=== PATIENT | female | born 1990 | race American Indian/Alaskan Native ===

== ENCOUNTER 2016-07-16 07:23 | Inpatient (IN) | payer MEDICARE, OTHER ==
[2016-07-16] MEDS ORDERED: Sodium Chloride 0.9% 1,000 ML IV ONE ×2 (08:09→10:35)
[2016-07-16 08:36] LABS: BASO % 0.4 % (0.0-2.0); EOS % 0.2 % (0.0-4.0); LYMPH % 17.8 % (20.0-40.0); MEAN CELL VOLUME 80.3 fL (81.0-99.0); MEAN CORPUSCULAR HEMOGLOBIN 26.3 pg (27.0-31.0); MEAN CORPUSCULAR HGB CONC 32.7 g/dL (33.0-37.0); MEAN PLATELET VOLUME 8.2 fL (7.2-11.7); MONO # 0.5 K/uL (0.0-0.8); MONO % 8.8 % (0.0-10.0); NRBC % 0.1 % (0.0-2.0); RED CELL DISTRIBUTION WIDTH 13.7 % (11.5-14.5); WHITE BLOOD COUNT 5.7 K/uL (4.8-10.8)
[2016-07-16 08:43] LABS: CHLORIDE 102 mmol/L (98-107)
[2016-07-16 08:44] LABS: POTASSIUM 3.2 mmol/L (3.6-5.2); SODIUM 137 mmol/L (132-148)
[2016-07-16 08:47] LABS: ALB/GLOB RATIO 1.2 (1.0-2.1); ALKALINE PHOSPHATASE 40 U/L (38-126); ALT/SGPT 52 U/L (9-52); AST/SGOT 50 U/L (14-36); BILIRUBIN,TOTAL 0.4 mg/dL (0.2-1.3); BLOOD UREA NITROGEN 4 mg/dL (7-17); CALCIUM 8.2 mg/dl (8.6-10.4); CARBON DIOXIDE 23 mmol/L (22-30); GFR AFRICAN-AMERICAN > 60; GLUCOSE,RANDOM 110 mg/dL (65-105); TOTAL PROTEIN 6.6 g/dL (6.3-8.3)
[2016-07-16] MEDS ORDERED: Potassium Chloride 20 mEq ER Tab PO STA ×2 (09:09→15:08)
[2016-07-16] MEDS ORDERED: Potassium Chloride 20 mEq ER Tab PO ONE ×2 (09:20→19:53)
--- NOTE | 2016-07-16 09:20 | C.PDOC ---
History Of Present Illness 26-year-old female with PMH asthma and bipolar disorder presents to the emergency department with complaints of fever, productive cough, body aches and shortness of breath. Patient notes she does not feel well was seen at [facility] few days ago for bronchitis and given cough medicine which she did not take. Denies back pain, dizziness, rashes, or any other associated symptoms. Of note patient is homeless. Time Seen by Provider: 07/16/16 08:07 Chief Complaint (Nursing): Cough, Cold, Congestion History Per: Patient History/Exam Limitations: no limitations Onset/Duration Of Symptoms: Days Current Symptoms Are (Timing): Still Present Past Medical History Reviewed: Historical Data, Nursing Documentation, Vital Signs Vital Signs: Last Vital Signs Temp 100.7 F H 07/16/16 14:12 Pulse 107 H 07/16/16 14:12 Resp 30 H 07/16/16 14:12 BP 103/54 L 07/16/16 14:12 Pulse Ox 93 L 07/16/16 14:12 - Medical History PMH: Anxiety, Asthma, Bipolar Disorder Surgical History: Tonsillectomy Family History: States: Unknown Family Hx - Social History Hx Alcohol Use: Yes Hx Substance Use: No - Immunization History Hx Tetanus Toxoid Vaccination: No Hx Influenza Vaccination: No Hx Pneumococcal Vaccination: No Review Of Systems Except As Marked, All Systems Reviewed And Found Negative. Constitutional: Positive for: Fever, Malaise Cardiovascular: Negative for: Chest Pain, Palpitations Respiratory: Positive for: Cough, Shortness of Breath, Sputum Gastrointestinal: Positive for: Nausea, Vomiting. Negative for: Abdominal Pain Genitourinary: Negative for: Dysuria, Frequency Musculoskeletal: Negative for: Back Pain Skin: Negative for: Rash Neurological: Negative for: Weakness, Numbness, Headache, Dizziness Physical Exam - Physical Exam Appears: Non-toxic, No Acute Distress, Other (patient is drowsy) Skin: Warm, Dry, No Rash Head: Atraumatic, Normacephalic Eye(s): bilateral: Normal Inspection, PERRL, EOMI Ear(s): Bilateral: Normal Nose: Normal Oral Mucosa: Moist Lips: Normal Appearing Neck: Normal ROM, Supple Cardiovascular: Rhythm Regular, No Murmur Respiratory: No Accessory Muscle Use, No Rhonchi, No Wheezing, Other (clear lungs, poor effort) Gastrointestinal/Abdominal: Normal Exam, Soft Extremity: Normal ROM, No Tenderness, No Deformity Neurological/Psych: Oriented x3, Normal Speech ED Course And Treatment - Laboratory Results Result Diagrams: 07/16/16 08:32 07/16/16 08:32 Lab Interpretation: No Acute Changes O2 Sat by Pulse Oximetry: 95 (room air) Pulse Ox Interpretation: Normal - Radiology CXR: Interpreted by Me, Viewed By Me, Read By Radiologist (DR. Brown, Melanie Manrique MD) CXR Interpretation: Yes: Other (Retrocardiac opacity suspicious for pneumonia. Right basilar atelectasis.) - Physician Consult Information Time Consulting Physician Contacted: 10:50 (physician was not reached and left a voicemail) Physician Contacted: Aiden Warner (11:35) Outcome Of Conversation: patient accepted to service Medical Decision Making Medical Decision Making: Impression: Fever and cough Prior Visits Notes and records from previous visits were reviewed. Patient was seen in [facility] ED over the last 3 days for similar complaints, diagnosed with flu and given meds. Labs and CXR normal Plan: * Labs * Chest X-Ray * Motrin in triage * IVF * Urinalysis/HCG * Reassess and Disposition Progress: Labs reviewed with no acute changes from prior [facility] visit. No leukocytosis. Patient remained febrile during evaluation. Tylenol PO ordered. CXR shows findings suspicious for pneumonia as read by Dr Brown. Patient remained febrile and tachycardic and O2 saturation drops to low 88-90s when room air. Case discussed with Dr Anthony who recommends observation medical admission for pnuemonia [address] Warner with no response [id number] Dr Parker returns call and accepts patient to service. Disposition - Disposition Disposition: HOSPITALIZED Disposition Time: 11:35 Condition: FAIR - POA Present On Arrival: None - Clinical Impression Clinical Impression: Pneumonia - Scribe Statement The provider has reviewed the documentation as recorded by the Scribkelly Adam All medical record entries made by the Scribe were at my direction and personally dictated by me. I have reviewed the chart and agree that the record accurately reflects my personal performance of the history, physical exam, medical decision making, and the department course for this patient. I have also personally directed, reviewed, and agree with the discharge instructions and disposition. Decision To Admit - Pt Status Changed To: Hospital Disposition Of: Inpatient - Admit Certification Admit to Inpatient:: After my assessment, the patient will require hospitalization for at least two midnights. This is because of the severity of symptoms shown, intensity of services needed, and/or the medical risk in this patient being treated as an outpatient. - InPatient: Physician Admission Certification: I certify that this patient requires 2 or more midnights of care for the following reason:: Patient febrile tachycardic, hypoxic with pneumonia on CXR. Plan is to admit for IV antibiotics and O2 - . Bed Request Type: Regular Admitting Physician: Aiden Warner Patient Diagnosis: Pneumonia, Influenza
--- NOTE | 2016-07-16 09:46 | RAD ---
HISTORY: fever, cough COMPARISON: None available. TECHNIQUE: Chest PA and lateral FINDINGS: LUNGS: Retrocardiac opacity suspicious for pneumonia. Right basilar atelectasis. Please note that chest x-ray has limited sensitivity for the detection of pulmonary masses. PLEURA: No significant pleural effusion identified. No definite pneumothorax . CARDIOVASCULAR: The cardiomediastinal silhouette appears within normal limits of size. OSSEOUS STRUCTURES: No acute osseous abnormality identified. VISUALIZED UPPER ABDOMEN: Unremarkable. OTHER FINDINGS: None. IMPRESSION: Retrocardiac opacity suspicious for pneumonia. Right basilar atelectasis.
[2016-07-16] MEDS ORDERED: Azithromycin 500mg/250ML NS 250 ML IV STA (10:35)
[2016-07-16] MEDS ORDERED: cefTRIAXone IV 1 gm in Dextros 50 ML IV STA (10:35)
[2016-07-16] MEDS ORDERED: Azithromycin 500mg/250ML NS 250 ML IVPB ONE (10:57)
[2016-07-16] MEDS ORDERED: Sodium Chloride 0.9% 1,000 ML ONE (10:57)
[2016-07-16] MEDS ORDERED: cefTRIAXone IV 1 gm in Dextros 50 ML IVPB ONE (10:57)
--- NOTE | 2016-07-16 15:11 | CP.PCM.PN ---
Subjective - Date & Time of Evaluation Date of Evaluation: 07/16/16 Time of Evaluation: 15:15 - Subjective Subjective: H&P dictated #[id number] Objective - Vital Signs/Intake and Output Vital Signs (last 24 hours): Temp Pulse Resp BP Pulse Ox 100.7 F H 107 H 30 H 103/54 L 95 07/16/16 14:12 07/16/16 14:12 07/16/16 14:12 07/16/16 14:12 07/16/16 14:59 - Medications Medications: Current Medications Acetaminophen (Tylenol 325mg Tab) 650 mg PO Q6 PRN PRN Reason: Fever >100.4 F Sodium Chloride (Sodium Chloride 0.9%) 1,000 mls @ 100 mls/hr IV .Q10H ONE Stop: 07/16/16 20:34 Last Admin: 07/16/16 11:19 Dose: 100 mls/hr Oseltamivir Phosphate (Tamiflu Cap) 75 mg PO BID DEANNA Stop: 07/21/16 12:16 Potassium Chloride (K-Dur 20 Meq Er Tab) 40 meq PO STAT STA Stop: 07/16/16 15:09
--- NOTE | 2016-07-16 17:48 | HP ---
CHIEF COMPLAINT: Cough with yellowish sputum, with headache, body aches, chills , and fever over the past 1 week. Recently given Tamiflu from [facility]. HISTORY OF PRESENT ILLNESS: The patient is a 26-year-old female with past medical history of schizoaffective disorder, bipolar disorder, who got treatment from [facility] for a possible UTI and bacterial vaginosis. Was on Bactrim and Flagyl. Has been evaluated in the ED 4 times in the last 4 days for symptoms of cold, cough, fever, and she was diagnosed with influenza B, was given fluids, and after the patient was stabilized in ED observation the patient was given Tamiflu and discharged home. The patient returned to the ED with suicidal ideation. All these multiple ED visits were to [facility]. Returning to [facility] [place] ED today with similar complaints of fever, cough, cold, light yellowish sputum, headache, and body aches. She claims that she was given antibiotics for her bronchitis, and she does not recall what antibiotic she has been taking. She does not remember if she is has been taking Tamiflu. She claims that she has been given her medication by the [facility] personnel and she could not recall what medications she has been taking. She was diagnosed with schizoaffective disorder and bipolar disorder about 2 months ago. She was started on lithium and Zyprexa by psychiatrist from [place]. She stopped taking those medications about a week ago when her symptoms of bronchitis started. She thought that the medications were too much, and strong for her. She complains of intermittent headache. She denies any dizziness. She denies any nausea, vomiting, abdominal pain, diarrhea, or constipation. She denies any urinary complaints. She is complaining of leg pain. She denies any suicidal or homicidal ideation, but she is admitting to having aggressive behavior and she wants to attack people because of her cold symptoms, as they were not able to understand her condition. She denies any other hallucinations or hearing voices. PAST MEDICAL HISTORY: As described. Bipolar disorder, schizoaffective disorder. PAST SURGICAL HISTORY: Tonsillectomy, and underwent . About 8 years ago she had 2 miscarriages. Her LMP was on 06/22/2016. FAMILY HISTORY: Mother at age 27 secondary to pneumonia. She claims that her father is in [place], and she has other siblings who are in [place]. PERSONAL HISTORY: She is single, having 1 son; living in a [facility]. SOCIAL HISTORY: She smoked until a week ago; smoked 10 cigarettes per day. Denies any alcohol or any drug abuse. ALLERGIES: SHE IS ALLERGIC TO LACTOSE. Her home medications include Vistaril, BuSpar1 tablet p.o. daily, Phenergan cocktail, Tamiflu, Flagyl, Latuda, lithium carbonate 300 mg p.o. t.i.d., Z-figueroa, Ventolin, Motrin. REVIEW OF SYSTEMS: As described in history of present illness. All other systems reviewed and were found to be negative. On examination, a young obese female lying in bed in no acute distress. Blood pressure 103/54, pulse 107, temperature 100.7 degrees Fahrenheit, respirations 30, O2 sats 93% on 2 L. HEENT: Pupils equal, round, reacting to light and accommodation. Extraocular muscles intact. No icterus, no pallor. No oral thrush. Congested . NECK: Supple. No JVD. LUNGS: Bilateral vesicular breath sounds. No wheezing, no rhonchi heard. CARDIOVASCULAR SYSTEM: S1, S2 present, regular. ABDOMEN: Soft, nontender. Bowel sounds present. No guarding, no rigidity, no rebound tenderness noted. CENTRAL NERVOUS SYSTEM: Alert, awake, oriented x 3. No focal deficits noted. EXTREMITIES: No edema. Palpable peripheral pulses. LABS DONE FROM THE ED: WBC 5.7, hemoglobin 11.1, hematocrit 34, platelets 166. Sodium 137, potassium 3.2, chloride 102, bicarb 23, BUN 4, creatinine 10.8, glucose 110, calcium 8.2, total bilirubin 0.4. AST 50, ALT 52, alkaline phosphatase 40, total protein 6.6, albumin 3.6. CHEST X-RAY: Retrocardiac opacity suspicious for pneumonia, right basilar atelectasis. Chest x-ray done on 07/12: Chest x-ray negative. On 07/14 chest x-ray negative. ASSESSMENT: A young female with history of schizoaffective disorder diagnosed recently about 2 months ago. Has been on lithium and her Zyprexa; self- discontinued about a week ago because of symptoms of fever, cough with yellowish sputum, chills, rigors, and night sweats, who has been living in a [facility]. Came in to the ED with progressive worsening of her cough, fever, and chills. The patient had multiple visits to the ED in the past 4 days. Today at [facility] [place] ED she was found to be having retrocardiac infiltrate, and the patient is being admitted for further management. 1. Retrocardiac infiltrate. Rule out influenza pneumonia versus bacterial pneumonia. 2. Schizoaffective disorder. 3. Hypokalemia. PLAN: The patient is being admitted to medical floor. The patient received Zithromax and Rocephin in the ED for pneumonia. Since having influenza is positive, will continue with Tamiflu 75 mg p.o. b.i.d. Will get chest CT. Will give 2 L of oxygen via nasal cannula, give cough medicine, continue with Tamiflu 75 mg p.o. b.i.d. Will obtain ID evaluation. Blood cultures, urine culture given for drug screen. Serum for Gram-stain and culture ordered. Will check PPD. Will give promethazine cough medicine, check labs in a.m. Will obtain ID consult, and psychiatric consult as patient has self-discontinued her medications, lithium and Zyprexa. Will add further recommendation as her clinical course progresses. Aiden Warner MD cc: [phone] TT: 07/16/2016 17:48:00 jn [id number]
--- NOTE | 2016-07-16 17:50 | CP.PCM.CON ---
History of Present Illness - History of Present Illness History of Present Illness: Infectious disease consult; DICTATED: DICTATION NO [id number] Past Patient History - Past Social History Smoking Status: Light Smoker < 10 Cigarettes Daily - CARDIAC Hx Hypertension: No - PULMONARY Hx Asthma: Yes - NEUROLOGICAL Hx Seizures: No - ENDOCRINE/METABOLIC Hx Endocrine Disorders: No - HEMATOLOGICAL/ONCOLOGICAL Hx Human Immunodeficiency Virus (HIV): No - MUSCULOSKELETAL/RHEUMATOLOGICAL Hx Musculoskeletal Disorders: No - GENITOURINARY/GYNECOLOGICAL Hx Sexually Transmitted Disorders: No - PSYCHIATRIC Hx Anxiety: Yes Hx Bipolar Disorder: Yes Hx Substance Use: No - SURGICAL HISTORY Hx Tonsillectomy: Yes - ANESTHESIA Hx Anesthesia: Yes Hx Anesthesia Reactions: No Meds Allergies/Adverse Reactions: Allergies Allergy/AdvReac Type Severity Reaction Status Date / Time lactose AdvReac DIARRHEA Verified 07/16/16 07:41 - Medications Medications: Current Medications Acetaminophen (Tylenol 325mg Tab) 650 mg PO Q6 PRN PRN Reason: Fever >100.4 F Sodium Chloride (Sodium Chloride 0.9%) 1,000 mls @ 100 mls/hr IV .Q10H ONE Stop: 07/16/16 20:34 Last Admin: 07/16/16 11:19 Dose: 100 mls/hr Oseltamivir Phosphate (Tamiflu Cap) 75 mg PO BID DEANNA Stop: 07/21/16 12:16 Promethazine HCl (Phenergan Syrup) 6.25 mg PO Q6H PRN PRN Reason: Cough Tuberculin PPD (Tubersol) 5 tu ID DAILY@ONCE ONE Stop: 07/16/16 18:01 Results - Vital Signs Recent Vital Signs: Last Vital Signs Temp 100.7 F H 07/16/16 15:30 Pulse 106 H 07/16/16 15:30 Resp 20 07/16/16 15:30 BP 113/74 07/16/16 15:30 Pulse Ox 92 L 07/16/16 15:30 - Labs Result Diagrams: 07/16/16 08:32 07/16/16 08:32
[2016-07-16] MEDS: Promethazine 6.25 MG/5 ML CUP PO PRN (17:54)
[2016-07-16] MEDS ORDERED: Tuberculin 5 Units/0.1 ml Inj ID ONE (18:00)
[2016-07-16] MEDS: Cefepime IV 1 gm in Dextrose 50 ML IVPB SCH (20:06)
[2016-07-17] MEDS: Cefepime IV 1 gm in Dextrose 50 ML IVPB SCH ×3 (02:46→18:35)
[2016-07-17] MEDS: Promethazine 6.25 MG/5 ML CUP PO PRN ×2 (02:50→13:37)
[2016-07-17 03:37] LABS: RBC URINE 1 /hpf (0-3); URINE BILIRUBIN NEGATIVE (NEGATIVE); URINE BLOOD NEGATIVE (NEGATIVE); URINE COLOR Yellow (YELLOW); URINE GLUCOSE (UA) NORMAL (Normal); URINE KETONE 1+ mg/dL (NEGATIVE); URINE LEUKOCYTE ESTERASE NEG Leu/uL (Negative); URINE PROTEIN 2+ mg/dL (NEGATIVE); URINE UROBILINOGEN NORMAL mg/dL (0.2-1.0); WBC URINE 3 /hpf (0-5)
[2016-07-17] MEDS ORDERED: Albuterol-Ipratrop 3 mg / 0.5 (3 ml) UD INH STA (04:06)
[2016-07-17] MEDS: Albuterol-Ipratrop 3 mg / 0.5 (3 ml) UD INH SCH ×3 (08:21→21:50)
[2016-07-17] MEDS: Azithromycin 500 MG in Sodium Chloride 0.9% 250 ML IVPB SCH (09:41)
[2016-07-17 10:25] LABS: BASO % 0.7 % (0.0-2.0); EOS % 0.5 % (0.0-4.0); HEMATOCRIT 32.9 % (34.0-47.0); LYMPH # 0.8 K/uL (1.0-4.3); LYMPH % 26.3 % (20.0-40.0); MEAN CELL VOLUME 81.5 fL (81.0-99.0); MEAN CORPUSCULAR HEMOGLOBIN 26.3 pg (27.0-31.0); MEAN CORPUSCULAR HGB CONC 32.2 g/dL (33.0-37.0); MEAN PLATELET VOLUME 8.6 fL (7.2-11.7); MONO # 0.2 K/uL (0.0-0.8); MONO % 5.4 % (0.0-10.0); WHITE BLOOD COUNT 3.2 K/uL (4.8-10.8)
[2016-07-17 10:29] LABS: VENOUS BLOOD GAS BASE EXCESS -6.6 mmol/L (0.0-2.0); VENOUS BLOOD GAS PCO2 29 mmHg (40-60); VENOUS BLOOD PH 7.38 (7.32-7.43)
[2016-07-17] MEDS ORDERED: Potassium Chloride 20 mEq ER Tab PO ONE ×5 (10:35→23:55)
[2016-07-17] MEDS ORDERED: Potassium Chloride 10 mEq 100 ML IVPB ONE ×3 (10:36→12:38)
[2016-07-17 10:37] LABS: INR 1.2
[2016-07-17 10:43] LABS: CHLORIDE 103 mmol/L (98-107)
[2016-07-17 10:44] LABS: SODIUM 135 mmol/L (132-148)
[2016-07-17 10:46] LABS: ALB/GLOB RATIO 0.9 (1.0-2.1); ALKALINE PHOSPHATASE 26 U/L (38-126); AST/SGOT 79 U/L (14-36); BILIRUBIN,TOTAL 1.5 mg/dL (0.2-1.3); BLOOD UREA NITROGEN 5 mg/dL (7-17); CARBON DIOXIDE 22 mmol/L (22-30); CHOLESTEROL 142 mg/dL (0-199); GFR AFRICAN-AMERICAN > 60; GLUCOSE,RANDOM 132 mg/dL (65-105); TOTAL PROTEIN 6.7 g/dL (6.3-8.3)
[2016-07-17 10:47] LABS: ALT/SGPT 14 U/L (9-52); CALCIUM 7.2 mg/dl (8.6-10.4)
[2016-07-17 10:48] LABS: POTASSIUM 4.8 mmol/L (3.6-5.2)
[2016-07-17] MEDS ORDERED: Sodium Chloride 0.9% 1,000 ML IV ONE (10:50)
[2016-07-17 11:17] LABS: THYROID STIMULATING HORMONE 0.47 mIU/L (0.46-4.68)
--- NOTE | 2016-07-17 11:32 | CP.PCM.PN ---
Subjective - Date & Time of Evaluation Date of Evaluation: 07/17/16 Time of Evaluation: 11:15 - Subjective Subjective: Progress note dictated #[id number] Objective - Vital Signs/Intake and Output Vital Signs (last 24 hours): Temp Pulse Resp BP Pulse Ox 99.7 F H 113 H 20 116/75 95 07/17/16 11:14 07/17/16 08:45 07/17/16 08:45 07/17/16 08:45 07/17/16 08:45 - Medications Medications: Current Medications Acetaminophen (Tylenol 325mg Tab) 650 mg PO Q6 PRN PRN Reason: Fever >100.4 F Last Admin: 07/17/16 08:33 Dose: 650 mg Albuterol/Ipratropium (Duoneb 3 Mg/0.5 Mg (3 Ml) Ud) 3 ml INH RQ6 DEANNA Last Admin: 07/17/16 08:21 Dose: 3 ml Cefepime HCl (Maxipime Iv 1 Gm Premix) 50 mls @ 100 mls/hr IVPB Q8H DEANNA Last Admin: 07/17/16 02:46 Dose: 100 mls/hr Azithromycin 500 mg/ Sodium (Chloride) 250 mls @ 250 mls/hr IVPB DAILY DEANNA Last Admin: 07/17/16 09:41 Dose: 250 mls/hr Oseltamivir Phosphate (Tamiflu Cap) 75 mg PO BID DEANNA Stop: 07/21/16 12:16 Last Admin: 07/17/16 09:41 Dose: 75 mg Promethazine HCl (Phenergan Syrup) 6.25 mg PO Q6H PRN PRN Reason: Cough Last Admin: 07/17/16 02:50 Dose: 6.25 mg - Labs Labs: 07/17/16 10:17 07/17/16 10:40 PT 13.4 SECONDS (9.7-12.2) H 07/17/16 10:17 INR 1.2 07/17/16 10:17 APTT 32 SECONDS (21-34) 07/17/16 10:17
--- NOTE | 2016-07-17 11:45 | PCM.PSYCH ---
Initial Psychiatric Evaluation - Initial Psychiatric Evaluation Type of Admission: Voluntary Legal Status: Capacity Chief Complaint (in patient's own words): "I'm OK today" History of Present Illness and Precipitating Events: The patient is seen, chart reviewed and case discussed. Consultation was requested because of patient's psychiatric history. This is a 26-year-old -[place] female, single with 18-year-old son who is with his father in the [place]. The patient lives in [facility] and is unemployed. She says she wants to move to [place] or [place] and go to a school in [place]. The patient is here for pneumonia and rule out influenza. She was depressed and veryanxious yesterday and psych consult was requested. Today, however, she states that she feels better as her breathing has improved. She is future oriented, denies suicidal ideation, denies age or psych symptoms, i.e. not suicidal, homicidal, hallucinating, or delusional. However she feels anxious and worried about her future. She admits to not attending to any program or taking any medications. She said she was on lithium and Zyprexa but stopped because they made her gain weight. She also doesn't want to go to [facility] outpatient because she doesn't "like that hospital." Denies drug and alcohol use. Past psych history: Hospitalized at [facility] and diagnosed with schizoaffective disorder. She had SI in the past, no attempts. Has more than 5 psych admissions. Family psych history: Grandmother was schizophrenic Medical history: Obesity Current Medications: Active Medications Generic Name Dose Route Start Last Admin Trade Name Freq PRN Reason Stop Dose Admin Acetaminophen 650 mg 07/16/16 15:09 07/17/16 08:33 Tylenol 325mg Tab PO 650 mg Q6 PRN Administration Fever >100.4 F Albuterol/Ipratropium 3 ml 07/17/16 08:00 07/17/16 08:21 Duoneb 3 Mg/0.5 Mg (3 Ml) Ud INH 3 ml RQ6 DEANNA Administration Aripiprazole 5 mg 07/17/16 18:00 Abilify PO QPM DEANNA Enoxaparin Sodium 40 mg 07/17/16 11:45 Lovenox SC DAILY DEANNA Cefepime HCl 50 mls @ 100 mls/hr 07/16/16 19:00 07/17/16 02:46 Maxipime Iv 1 Gm Premix IVPB 100 mls/hr Q8H DEANNA Administration Azithromycin 500 mg/ Sodium 250 mls @ 250 mls/hr 07/17/16 10:00 07/17/16 09:41 Chloride IVPB 250 mls/hr DAILY DEANNA Administration Oseltamivir Phosphate 75 mg 07/16/16 18:00 07/17/16 09:41 Tamiflu Cap PO 07/21/16 12:16 75 mg BID DEANNA Administration Promethazine HCl 6.25 mg 07/16/16 15:57 07/17/16 02:50 Phenergan Syrup PO 6.25 mg Q6H PRN Administration Cough Past Psychiatric History - Past Psychiatric History Previous Treatment History: Inpatient Pertinent Medical Hx (Current Medical&Sleep Prob, Allergies): Allergies Allergy/AdvReac Type Severity Reaction Status Date / Time lactose AdvReac DIARRHEA Verified 07/16/16 07:41 Azithromycin [Zithromax] 250 mg PO DAILY #1 packet 07/12/16 Ibuprofen [Motrin Tab] 1 tab PO Q6 PRN #20 tab 07/12/16 [place] Carbonate [[place] Carbonate 150MG] 300 mg PO TID 07/12/16 Lurasidone Hydrochloride [Latuda] 1 tab PO 07/12/16 Metronidazole [Flagyl] 1 tab PO BID 07/12/16 Olanzapine [Olanzapine Odt] 1 tab PO DAILY 07/12/16 Promethazine DM [Phenergan DM Oral Syrup] 5 ml PO Q6H PRN #100 dose 07/12/16 Sulfamethoxazole/Trimethoprim [Bactrim DS Tab] 1 tab PO BID 07/12/16 busPIRone [Buspar] 1 tab PO 07/12/16 hydrOXYzine Pamoate [Vistaril] 1 tab PO TID 07/12/16 Albuterol HFA [Ventolin HFA 90 mcg/actuation (8 g)] 2 puff IH [id number] #1 inh 03/19 Oseltamivir Phosphate [Tamiflu] 75 mg PO BID #10 capsule 07/14/16 Review of Systems - Neurological Neurological: Weakness - Psychiatric Psychiatric: Abnormal Sleep Pattern, Anxiety, Difficulty Concentrating. absent : Auditory Hallucinations, Depression, Hallucinations, Homicidal Ideation, Hopelessness, Suicidal Ideation Mental Status Examination - Personal Presentation Personal Presentation: Looks older than stated age (obese) - Affect Affect: Constricted - Motor Activity Motor Activity: Calm - Reliability in Providing Information Reliability in Providing Information: Good - Speech Speech: Organized - Mood Mood: Anxious - Formal Thought Process Formal Thought Process: No Impairment - Cognitive Functions Orientation: Person, Place, Situation, Time Sensorium: Alert Attention/Concentration: Attentive Abstract Thinking: [place] Estimate of Intelligence: Average Judgement: Intact, as evidence by: Insight regarding need for hospitalization Memory: Recent intact, as evidence by: Ability to recall events of the day, Remote intact, as evidenced by: Abilit to recall sig. life events - Risk Risk: Diminished functioning - Strength & Assets Inventory Strength & Assets Inventory: Cooperative - Limitations Limitations: Living alone DSM 5 DX - DSM 5 DSM 5 Diagnosis: Schizoaffective d/o - unspecified Adjustment d/o - with anxiety - Recommended/Plan of Treatment Treatment Recommendations and Plan of Treatment: Abilify for mood stabilization: 5 mg qd x2 days, then 10 mg/d refer to [facility] for outpt care as she does not want to go to [facility] and psychoed 32 min
[2016-07-17 12:31] LABS: PHOSPHOROUS 3.3 mg/dL (2.5-4.5)
--- NOTE | 2016-07-17 13:35 | CT ---
CT chest with IV contrast Indication: Rule out PA, cough, fever Technique: Contiguous axial images were obtained through the chest with intravenous contrast enhancement. Sagittal and coronal reconstructions were generated and reviewed. This CT exam was performed using 1 or more of the falling dose reduction techniques: Automated exposure control, adjustment of the MAA and/or kV according to patient size, and/or use of iterative reconstruction technique. IV Contrast: 100 mL Visipaque Radiation dose (DLP): 574.00 MGy-cm. Comparison: Chest x-ray performed 07/16/16 Findings: Examination markedly limited due to habitus and patient motion secondary to coughing. Heart size appears top normal. No significant pericardial effusion. There is suboptimal opacification of the pulmonary arteries due to habitus and patient motion limiting evaluation for pulmonary embolus. Given this limitation, there are no definite intraluminal filling defects within the central pulmonary arteries to suggest central pulmonary embolism, however artifact obscures portion of the pulmonary trunk. Question filling defect with in the right proximal lower lobe branch pulmonary artery (series 2, image 109). Patchy nodular airspace consolidations and associated ground-glass opacities throughout all lobes with mid to lower lobe predominance. Small right pleural effusion. No pneumothorax. Limited visualization of the upper abdomen appears grossly unremarkable. No acute osseous abnormality is detected. Impression: There is suboptimal opacification of the pulmonary arteries due to habitus and patient motion limiting evaluation for pulmonary embolus. Given this limitation, there are no definite intraluminal filling defects within the central pulmonary arteries to suggest central pulmonary embolism, however artifact obscures portion of the pulmonary trunk. Question filling defect with in the right proximal lower lobe branch pulmonary artery, however this may also be artifact rather than thrombus. Patchy nodular airspace consolidations and associated ground-glass opacities throughout all lobes with mid to lower lobe predominance. Correlate clinically for infectious and inflammatory etiologies. Component of edema is not excluded. Small right pleural effusion.
[2016-07-17] MEDS: Enoxaparin 40 mg Syringe SC SCH (13:37)
[2016-07-17 20:08] LABS: CHLORIDE 103 mmol/L (98-107); POTASSIUM 3.1 mmol/L (3.6-5.2); SODIUM 140 mmol/L (132-148)
[2016-07-17 20:11] LABS: BLOOD UREA NITROGEN 4 mg/dL (7-17); CALCIUM 7.4 mg/dl (8.6-10.4); CARBON DIOXIDE 26 mmol/L (22-30); GFR AFRICAN-AMERICAN > 60; GLUCOSE,RANDOM 91 mg/dL (65-105)
[2016-07-18] MEDS: Albuterol-Ipratrop 3 mg / 0.5 (3 ml) UD INH SCH ×4 (01:02→20:00)
[2016-07-18] MEDS: Cefepime IV 1 gm in Dextrose 50 ML IVPB SCH ×3 (04:05→18:33)
--- NOTE | 2016-07-18 07:04 | CON ---
DATE: 07/16/2016 REQUESTING PHYSICIAN: Dr. Warner. . REASON FOR CONSULTATION: Pneumonia, acute bronchitis, and bipolar disorder. The patient, a 26-year-old female who is homeless with multiple medical problems, including asthma, b ipolar disorder, anxiety disorder, who presents to the Emergency Department with complaints fever, pr oductive cough, yellowish-greenish phlegm, body aches, and shortness of breath. The patient states s he has not been feeling well, and been at [facility], [place], for a few days, and from where she was discharged and given some cough medications and pills. She does not know. She denies taking th em also. Presently she denies any headache, sinus problems. Chest x-ray on admission showed right retrocardia c opacity consistent with pneumonia, and right basilar atelectasis. The patient also was febrile to 100.7, with blood pressure 103/54. The patient denies any rashes or any other associated symptoms, pain or pleuritic pain. She denies any dizziness. The patient denies any recent contact with any sick patient, but states she is homeless. She denies any recent travel. The patient was given a dose of Zithromax and Rocephin after appropriate cultures. Presently also started on Tamiflu 75 mg p.o. b.i.d. Infectious disease consultation requested by the PMD for evaluation of fevers and pneumo janett. The patient also has history of bipolar disorder, and is presently some kind of medications including lithium and Zyprexa. PAST MEDICAL HISTORY: As above. Anxiety problems, asthma, and bipolar disorder. SURGICAL HISTORY: Gives history of . FAMILY HISTORY: Unknown. SOCIAL HISTORY: She denies any substance abuse. She does use alcohol intermittently off and on. Sm oking intermittently. IMMUNIZATION HISTORY: She is not up to date on , influenza vaccine, and pneumococcal vaccine. as reported. REVIEW OF SYSTEMS: As above. CONSTITUTIONAL: Complains of . CARDIOVASCULAR: Denies any chest pain, palpitations. RESPIRATORY: Complains of cough, shortness of breath, and productive greenish-yellowish phlegm. GASTROINTESTINAL: Complains of some nausea and vomiting, but denies any abdominal pain, diarrhea. GENITOURINARY: Unremarkable. No history of dysuria. No history of frequency . : Complains of generalized body aches. Denies any back pain. SKIN: Negative for rash. CENTRAL NERVOUS SYSTEM: Denies weakness, or headache, or dizziness. No history of seizures. MEDICATIONS: As per chart review. See MAR. On physical examination, the patient is a 26-year-old, heavy built female; 5 feet 3 inches, 239 pound s, BMI of 43.7 kg. Blood pressure 103/54, T-max of 100.7, pulse ox was 95% on room air, pulse is 107, respiratory rate 2 2. HENT: Pupils are equal, reactive to light and accommodation. Extraocular movements full. Fundus ne gative. Sclerae nonicteric, conjunctivae normal. JVP not elevated. NECK: Appears to be supple. signs noted. LUNGS: Few rhonchi, respirations. Loose breath sounds at the bases. . CARDIOVASCULAR SYSTEM: S1, S2. No murmur or gallop. ABDOMEN: Soft. Bowel sounds present, no organomegaly. EXTREMITIES: No cyanosis, clubbing. No calf tenderness. CENTRAL NERVOUS SYSTEM: Awake, alert . Moves all extremities. Reflexes are symmetrical. Cran ial nerves II-XII seem to be intact. LABORATORY DATA: WBC is 5.7, H and H of 11.1 and 34.0, platelets 166. Creatinine 0.8, BUN 4. Liver function tests: Bilirubin is 0.4, AST 50, ALT 52. Alkaline phosphatase 52, potassium is 3.2. CHEST X-RAY: right base . IMPRESSION: 1. Pneumonia with fevers. Rule out atypical pneumonia, rule out . 2. Exacerbation of bronchial asthma. 3. Bipolar disorder. 4. Anxiety problems. PLAN: 1. Pancultures. Will get influenza rapid antigen test, as well as influenza A and B antibody. Will check atypical titers for Legionella, mycoplasma, and Legionella urinary antigen. Get sed rate, C-r eactive proteins. The patient will also get an HIV-1 and 2 antibody, and lymphocyte subsets studies. Drug Screen: Urine has been sent by the PMD. Also, CT chest as ordered. Will continue p.o. Tamif isabelle 75 mg b.i.d. for 5 days. Will start her on IV Maxipime 1 g q. 8 hourly in view of persistent gree yusra phlegm. 2. Continue IV Zithromax 500 mg IV piggyback once daily. Continue droplet precautions: Gown, glove s, and hand hygiene. Will follow up along with you and make any adjustments as needed. Thank you very much for allowing me to participate in the care of your patient. Will follow up as ne anna. Kailyn Dudley MD cc: [id number] TT: 07/16/2016 20:06:03 Confirmation # [id number] Dictation # [id number] jn
--- NOTE | 2016-07-18 07:07 | PN ---
DATE: 07/17/2016 The patient is seen and examined at bedside. Events from last night and this morning noted. The patient was tachycardic, tachypneic with elevated temperatures. The patient was started on nonrebreather mask and was given nebulizer treatment, with which her symptoms improved. When I came to evaluate the patient, the patient is more alert and awake, sitting comfortably in bed, complaining of cough with yellowish sputum. Denied any chest pain. Denied any nausea, vomiting. Denied any other complaints. MEDICATIONS: Include Tylenol, DuoNeb, Abilify 5 mg p.o. q.p.m., azithromycin 500 mg IV daily, Maxipime 1 gram IV q. 8 hours, Lovenox 40 mg subQ daily, Tamiflu 75 mg p.o. b.i.d., Phenergan cough syrup as needed. PHYSICAL EXAMINATION: GENERAL: Young female, lying in bed, in no acute distress. VITAL SIGNS: Blood pressure 116/75, pulse 113, temperature 102.4, O2 sats 95% on nonrebreather mask. HEENT: Pupils equal, round, reacting to light and accommodation. Extraocular muscles intact. No oral thrush. NECK: Supple. No JVD. LUNGS: Bilateral vesicular breath sounds, left-sided rhonchi heard. CARDIOVASCULAR: S1, S2 present, regular. ABDOMEN: Soft, nontender. Bowel sounds present. No guarding, no rigidity, no rebound tenderness noted. CENTRAL NERVOUS SYSTEM: Alert, awake, oriented x 3. No focal deficits noted. EXTREMITIES: No edema. Palpable peripheral pulses. LABORATORIES: Done from this morning, WBC 3.2, hemoglobin 10.6, hematocrit 32.9 , platelets 189. PT 13.4, INR 1.2, PTT 32. ABG on room air shows pH of 7.38, pCO2 29, pO2 is 100 on nonrebreather mask. Sodium 135, potassium 4.8, chloride 103, bicarbonate 22, BUN 5, creatinine 0.6, glucose 132, calcium 7.2. Magnesium pending. Phosphorus pending. Total bilirubin 1.5, AST 79, alkaline phosphatase 26. CPK more than 15. Total protein 6.7, albumin 3.2, globulin 3.6. Triglycerides 127, cholesterol 142, HDL 24. TSH 0.47. UA: Specific gravity 1.018, protein 2+, ketones 1+. Urine tox screen negative. Influenza A and B negative. Legionella negative. [place] level is less than 0.2. The patient did not have CT scan done. ASSESSMENT AND PLAN: A young female with history of schizoaffective disorder with recently diagnosed influenza B positive and bacterial vaginosis, acute bronchitis, was given multiple antibiotics and Tamiflu from [place], admitted to [facility]. Chest x-ray showing possible retrocardiac infiltrate, started on antibiotics and Tamiflu, status post acute respiratory distress, rule out secondary to anxiety versus worsening infiltrate. The patient improved with nebulizer treatment and oxygen. We will rule out pulmonary embolism with CT of the chest with contrast. We will continue with current antibiotics as per ID. ID input appreciated. Psychiatric evaluation appreciated. We will give Lovenox for deep venous thrombosis prophylaxis. Follow up with CT chest results. We will change nonrebreather to oxygen via nasal cannula and titrate to keep her oxygen saturations sats more than 90%. We will add further recommendation as her clinical course progresses. Aiden Warner MD cc: [id number] TT: 07/17/2016 13:13:01 Confirmation # [id number] Dictation # [id number] MTDD
[2016-07-18 10:33] LABS: ABG ALLEN TEST A; ARTERIAL BLOOD HGB O2 SAT 97.1 % (95.0-98.0); CARBOXYHEMOGLOBIN 1.6 % (0.5-1.5); DRAW SITE LR; HHB 0.1 % (0.0-5.0); METHEMOGLOBIN 1.2 % (0.0-3.0)
[2016-07-18] MEDS: Enoxaparin 40 mg Syringe SC SCH (10:58)
[2016-07-18] MEDS: Azithromycin 500 MG in Sodium Chloride 0.9% 250 ML IVPB SCH (10:59)
[2016-07-18 11:23] LABS: CHLORIDE 101 mmol/L (98-107); POTASSIUM 3.7 mmol/L (3.6-5.2); SODIUM 138 mmol/L (132-148)
[2016-07-18 11:25] LABS: GFR AFRICAN-AMERICAN > 60
[2016-07-18 11:26] LABS: BLOOD UREA NITROGEN 3 mg/dL (7-17); CALCIUM 7.7 mg/dl (8.6-10.4); CARBON DIOXIDE 27 mmol/L (22-30); GLUCOSE,RANDOM 87 mg/dL (65-105)
--- NOTE | 2016-07-18 12:16 | CP.PCM.PN ---
Subjective - Date & Time of Evaluation Date of Evaluation: 07/18/16 Time of Evaluation: 11:45 - Subjective Subjective: Progress note dictated #[id number] Objective - Vital Signs/Intake and Output Vital Signs (last 24 hours): Temp Pulse Resp BP Pulse Ox 98.5 F 88 20 113/79 95 07/18/16 09:22 07/18/16 09:22 07/18/16 09:22 07/18/16 09:22 07/18/16 09:22 - Medications Medications: Current Medications Acetaminophen (Tylenol 325mg Tab) 650 mg PO Q6 PRN PRN Reason: Fever >100.4 F Last Admin: 07/17/16 20:20 Dose: 650 mg Albuterol/Ipratropium (Duoneb 3 Mg/0.5 Mg (3 Ml) Ud) 3 ml INH RQ6 [facility] Last Admin: 07/18/16 09:02 Dose: Not Given Aripiprazole (Abilify) 5 mg PO QPM [facility] Last Admin: 07/17/16 18:35 Dose: 5 mg Enoxaparin Sodium (Lovenox) 40 mg SC DAILY [facility] Last Admin: 07/18/16 10:58 Dose: 40 mg Folic Acid (Folic Acid) 1 mg PO DAILY [facility] Cefepime HCl (Maxipime Iv 1 Gm Premix) 50 mls @ 100 mls/hr IVPB Q8H [facility] Last Admin: 07/18/16 04:05 Dose: 100 mls/hr Azithromycin 500 mg/ Sodium (Chloride) 250 mls @ 250 mls/hr IVPB DAILY [facility] Last Admin: 07/18/16 10:59 Dose: 250 mls/hr Trimethoprim/Sulfamethoxazole (240 mg/ Dextrose) 100 mls @ 100 mls/hr IVPB Q8H [facility] Oseltamivir Phosphate (Tamiflu Cap) 75 mg PO BID [facility] Stop: 07/21/16 12:16 Last Admin: 07/18/16 10:58 Dose: 75 mg Promethazine HCl (Phenergan Syrup) 6.25 mg PO Q6H PRN PRN Reason: Cough Last Admin: 07/17/16 13:37 Dose: 6.25 mg - Labs Labs: 07/17/16 10:17 07/18/16 10:54 PT 13.4 SECONDS (9.7-12.2) H 07/17/16 10:17 INR 1.2 07/17/16 10:17 APTT 32 SECONDS (21-34) 07/17/16 10:17
[2016-07-18 12:27] LABS: RBC URINE 1799 /hpf (0-3); URINE BACTERIA RARE (<OCC); URINE BILIRUBIN NEGATIVE (NEGATIVE); URINE BLOOD 3+ (NEGATIVE); URINE COLOR Yellow (YELLOW); URINE GLUCOSE (UA) NORMAL (Normal); URINE KETONE 2+ mg/dL (NEGATIVE); URINE LEUKOCYTE ESTERASE NEG Leu/uL (Negative); URINE PROTEIN 2+ mg/dL (NEGATIVE); URINE UROBILINOGEN NORMAL mg/dL (0.2-1.0)
--- NOTE | 2016-07-18 13:02 | CP.PCM.CON ---
History of Present Illness - History of Present Illness History of Present Illness: Pulmology consult for pneumonia and shortness of breath. Patient is a 26yo AA F that presented with fever, cough, and shortness of breath , previously seen at [facility] and sent home with cough medication that she did not take. The patient was seen in the ED and was admitted for possible diagnosis of Pneumonia. The patient was seen and examined at bedside, no acute distress, no acute events overnight. The patient was fatigued but cooperative when questioned about her condition, the patient states that is difficult to talk due to how short of breath she gets. The patient is currently saturating well on 100% O2 non-rebreather mask. The patient currently denies chest pain, palpitations, nausea, vomiting, abd pain, edema, pain on inspiration, cough, nasal congestion. PMH: Asthma PsychHx: Bipolar, Anxiety PSH:Tonsillectomy Meds: Alvan, Olanzapine Allergies: Lactose FamHx: Denies significant family history Social: former smoker, denies etoh, illicit drug use/ Review of Systems - Constitutional Constitutional: Chills, Fever. absent: Headache, Night Sweats - EENT Eyes: absent: Blurred Vision, Change in Vision Ears: absent: Ear Pain - Respiratory Respiratory: Cough, Dyspnea, Dyspnea on Exertion, Wheezing, Chest Congestion. absent: Hemoptysis - Musculoskeletal Musculoskeletal: absent: Arthralgias, Joint Swelling, Muscle Weakness - Integumentary Integumentary: absent: Changing Lesions, Non-Healing Lesions - Neurological Neurological: absent: Abnormal Gait, Abnormal Hearing Past Patient History - Past Medical History & Family History Past Medical History?: Yes - Past Social History Smoking Status: Light Smoker < 10 Cigarettes Daily - CARDIAC Hx Cardiac Disorders: No Hx Hypertension: No - PULMONARY Hx Respiratory Disorders: Yes Hx Asthma: Yes Hx Bronchitis: Yes - NEUROLOGICAL Hx Neurological Disorder: No Hx Seizures: No - HEENT Hx HEENT Problems: No - RENAL Hx Chronic Kidney Disease: No - ENDOCRINE/METABOLIC Hx Endocrine Disorders: No - HEMATOLOGICAL/ONCOLOGICAL Hx Blood Disorders: No Hx Human Immunodeficiency Virus (HIV): No - INTEGUMENTARY Hx Dermatological Problems: No - MUSCULOSKELETAL/RHEUMATOLOGICAL Hx Falls: No - GASTROINTESTINAL Hx Gastrointestinal Disorders: No - GENITOURINARY/GYNECOLOGICAL Hx Genitourinary Disorders: No Hx Sexually Transmitted Disorders: No - PSYCHIATRIC Hx Substance Use: No - SURGICAL HISTORY Hx Surgeries: Yes Hx Section: Yes Hx Tonsillectomy: Yes - ANESTHESIA Hx Anesthesia: Yes Hx Anesthesia Reactions: No Hx Malignant Hyperthermia: No Has any member of the family had a problem w/ anesthesia?: No Meds Allergies/Adverse Reactions: Allergies Allergy/AdvReac Type Severity Reaction Status Date / Time lactose AdvReac DIARRHEA Verified 07/16/16 07:41 - Medications Medications: Current Medications Acetaminophen (Tylenol 325mg Tab) 650 mg PO Q6 PRN PRN Reason: Fever >100.4 F Last Admin: 07/17/16 20:20 Dose: 650 mg Albuterol/Ipratropium (Duoneb 3 Mg/0.5 Mg (3 Ml) Ud) 3 ml INH RQ6 [facility] Last Admin: 07/18/16 09:02 Dose: Not Given Aripiprazole (Abilify) 5 mg PO QPM [facility] Last Admin: 07/17/16 18:35 Dose: 5 mg Enoxaparin Sodium (Lovenox) 40 mg SC DAILY [facility] Last Admin: 07/18/16 10:58 Dose: 40 mg Folic Acid (Folic Acid) 1 mg PO DAILY [facility] Cefepime HCl (Maxipime Iv 1 Gm Premix) 50 mls @ 100 mls/hr IVPB Q8H [facility] Last Admin: 07/18/16 12:46 Dose: 100 mls/hr Azithromycin 500 mg/ Sodium (Chloride) 250 mls @ 250 mls/hr IVPB DAILY [facility] Last Admin: 07/18/16 10:59 Dose: 250 mls/hr Trimethoprim/Sulfamethoxazole (240 mg/ Dextrose) 250 mls @ 166.667 mls/hr IVPB Q8H [facility] Oseltamivir Phosphate (Tamiflu Cap) 75 mg PO BID [facility] Stop: 07/21/16 12:16 Last Admin: 07/18/16 10:58 Dose: 75 mg Promethazine HCl (Phenergan Syrup) 6.25 mg PO Q6H PRN PRN Reason: Cough Last Admin: 07/17/16 13:37 Dose: 6.25 mg Physical Exam - Constitutional Appears: No Acute Distress, Unkempt - Head Exam Head Exam: ATRAUMATIC, NORMAL INSPECTION - Eye Exam Eye Exam: EOMI, Normal appearance - ENT Exam ENT Exam: Normal Exam - Neck Exam Neck exam: Positive for: Normal Inspection - Respiratory Exam Respiratory Exam: Decreased Breath Sounds, Rhonchi, Wheezes. absent: Rales - Cardiovascular Exam Cardiovascular Exam: +S1, +S2 - Extremities Exam Extremities exam: Positive for: normal inspection - Back Exam Back exam: NORMAL INSPECTION - Neurological Exam Neurological exam: Alert, Oriented x3 - Skin Skin Exam: Dry, Normal Color, Warm Results - Vital Signs Recent Vital Signs: Last Vital Signs Temp 98.5 F 07/18/16 09:22 Pulse 88 07/18/16 09:22 Resp 20 07/18/16 09:22 BP 113/79 07/18/16 09:22 Pulse Ox 95 07/18/16 09:22 - Labs Result Diagrams: 07/17/16 10:17 07/18/16 10:54 Labs: Laboratory Results - last 24 hr 07/17/16 07/17/16 07/17/16 10:30 12:11 19:56 Puncture Site pCO2 pO2 HCO3 ABG pH ABG Total CO2 ABG O2 Saturation ABG Base Excess ABG Hemoglobin ABG Carboxyhemoglobin POC ABG HHb (Measured) ABG Methemoglobin Naif Test A-a O2 Difference Respiratory Index Hgb O2 Saturation FiO2 Sodium 140 Potassium 3.1 L Chloride 103 Carbon Dioxide 26 Anion Gap 14 BUN 4 L Creatinine 0.7 Est GFR ( Amer) > 60 Est GFR (Non-Af Amer) > 60 Random Glucose 91 Calcium 7.4 L Urine Color Urine Clarity Urine pH Ur Specific Royal Urine Protein Urine Glucose (UA) Urine Ketones Urine Blood Urine Nitrate Urine Bilirubin Urine Urobilinogen Ur Leukocyte Esterase Urine RBC (Auto) Ur Squamous Epith Cells Urine Bacteria Hepatitis A IgM Ab Negative Hep Bs Antigen Negative Hep B Core IgM Ab Negative Hepatitis C Antibody Negative Negative HIV 1&2 Antibody Screen Negative 07/18/16 07/18/16 07/18/16 10:20 10:54 12:11 Puncture Site Lr pCO2 49 H pO2 140 H HCO3 28.1 H ABG pH 7.39 ABG Total CO2 31.2 H ABG O2 Saturation 99.9 H ABG Base Excess 4.0 H ABG Hemoglobin 10.6 L ABG Carboxyhemoglobin 1.6 H POC ABG HHb (Measured) 0.1 ABG Methemoglobin 1.2 Naif Test A A-a O2 Difference 512.0 Respiratory Index 3.7 Hgb O2 Saturation 97.1 FiO2 100.0 Sodium 138 Potassium 3.7 Chloride 101 Carbon Dioxide 27 Anion Gap 14 BUN 3 L Creatinine 0.5 L Est GFR ( Amer) > 60 Est GFR (Non-Af Amer) > 60 Random Glucose 87 Calcium 7.7 L Urine Color Yellow Urine Clarity Hazy Urine pH 6.0 Ur Specific Royal 1.016 Urine Protein 2+ H Urine Glucose (UA) Normal Urine Ketones 2+ H Urine Blood 3+ H Urine Nitrate Negative Urine Bilirubin Negative Urine Urobilinogen Normal Ur Leukocyte Esterase Neg Urine RBC (Auto) 1799 H Ur Squamous Epith Cells 3 Urine Bacteria Rare Hepatitis A IgM Ab Hep Bs Antigen Hep B Core IgM Ab Hepatitis C Antibody HIV 1&2 Antibody Screen Assessment & Plan - Assessment and Plan (Free Text) Plan: 1) Pneumonia Patient has bilateral pneumonia, with possible effusions. worse on the right. -ABG on Room Air -consider Abx as per ID -continue breathing treatment to improve breathing function - Date & Time Date: 07/18/16 Time: 10:00
[2016-07-18] MEDS: Sulfamethoxazole/Trimethoprim 240 MG in Dextrose 5% In Water 250 ML IVPB SCH ×2 (13:59→22:22)
--- NOTE | 2016-07-18 14:10 | CP.PCM.PN ---
Subjective - Date & Time of Evaluation Date of Evaluation: 07/18/16 Time of Evaluation: 14:10 - Subjective Subjective: afebrile, vs as noted. Patient on nonrebreather Ventimask, complains of dyspnea on exertion, PULSE OX 95% Seen by PULMONARY AND NOTED..07/18/16 CT-ANGIO OF THE CHEST; NEGATIVE FOR PE BILATERAL PATCHY NODULAR AIR-SPACE CONSOLIDATION ASSOCIATED WITH GROUND GLASS OPACITIES THROUGHOUT MID TO LOWER LOBES PREDOMINANTLY. HIV 1 AND 2 ANTIBODY NEGATIVE. Objective - Vital Signs/Intake and Output Vital Signs (last 24 hours): Temp Pulse Resp BP Pulse Ox 98.5 F 88 20 113/79 95 07/18/16 09:22 07/18/16 09:22 07/18/16 09:22 07/18/16 09:22 07/18/16 09:22 - Medications Medications: Current Medications Acetaminophen (Tylenol 325mg Tab) 650 mg PO Q6 PRN PRN Reason: Fever >100.4 F Last Admin: 07/17/16 20:20 Dose: 650 mg Albuterol/Ipratropium (Duoneb 3 Mg/0.5 Mg (3 Ml) Ud) 3 ml INH RQ6 [facility] Last Admin: 07/18/16 09:02 Dose: Not Given Aripiprazole (Abilify) 5 mg PO QPM [facility] Last Admin: 07/17/16 18:35 Dose: 5 mg Enoxaparin Sodium (Lovenox) 40 mg SC DAILY [facility] Last Admin: 07/18/16 10:58 Dose: 40 mg Folic Acid (Folic Acid) 1 mg PO DAILY [facility] Cefepime HCl (Maxipime Iv 1 Gm Premix) 50 mls @ 100 mls/hr IVPB Q8H [facility] Last Admin: 07/18/16 12:46 Dose: 100 mls/hr Azithromycin 500 mg/ Sodium (Chloride) 250 mls @ 250 mls/hr IVPB DAILY [facility] Last Admin: 07/18/16 10:59 Dose: 250 mls/hr Trimethoprim/Sulfamethoxazole (240 mg/ Dextrose) 250 mls @ 166.667 mls/hr IVPB Q8H [facility] Last Admin: 07/18/16 13:59 Dose: 166.667 mls/hr Oseltamivir Phosphate (Tamiflu Cap) 75 mg PO BID [facility] Stop: 07/21/16 12:16 Last Admin: 07/18/16 10:58 Dose: 75 mg Promethazine HCl (Phenergan Syrup) 6.25 mg PO Q6H PRN PRN Reason: Cough Last Admin: 07/17/16 13:37 Dose: 6.25 mg - Labs Labs: 07/17/16 10:17 07/18/16 10:54 PT 13.4 SECONDS (9.7-12.2) H 07/17/16 10:17 INR 1.2 07/17/16 10:17 APTT 32 SECONDS (21-34) 07/17/16 10:17 - Constitutional Appears: No Acute Distress - Head Exam Head Exam: NORMAL INSPECTION - Eye Exam Eye Exam: EOMI, PERRL - ENT Exam ENT Exam: Mucous Membranes Moist - Neck Exam Neck Exam: absent: Lymphadenopathy, Thyromegaly - Respiratory Exam Respiratory Exam: Rhonchi (BILATERAL RHONCHI AND WHEEZE.) - Cardiovascular Exam Cardiovascular Exam: REGULAR RHYTHM, +S1, +S2 - GI/Abdominal Exam GI & Abdominal Exam: Soft, Normal Bowel Sounds. absent: Organomegaly - Extremities Exam Extremities Exam: Normal Capillary Refill. absent: Calf Tenderness - Neurological Exam Neurological Exam: Awake, CN II-XII Intact, Oriented x3 - Psychiatric Exam Psychiatric exam: Flat Affect - Skin Skin Exam: Normal Color, Warm Assessment and Plan (1) Pneumonia Status: Acute (2) Fever Status: Acute (3) Bronchial asthma Status: Acute (4) Schizoaffective disorder Status: Acute - Assessment and Plan (Free Text) Plan: PLAN; CONTINUE iv mAXIPIME 1 G EVERY 8 HOURLY.07/17/16 CONTINUE BY MOUTH TAMIFLU 75 TWICE A DAY FOR 5 DAYS. 07/17/16 ADD iv BACTRIM 240MG TMP/SMX iv PIGGYBACK EVERY 8 HOURLY.07/18/16. CONTINUE ZITHROMAX 500 MG ONCE A DAY DAILY FOR ATYPICAL PATHOGENS.07/17/16 iv sOLU-mEDROL 125 MG X1 DOSE NOW FOLLOW-UP ATYPICAL TITERS. CHECK LDH,ESR,CRP. LEONIE. [facility] FOR PCP. FOLINIC ACID 1 MG BY MOUTH DAILY PULMONARY TOILET AND RESPIRATORY TREATMENTS PER PULMONARY. ? STEROIDS FOR EXACERBATION OF ASTHMA.
[2016-07-18 15:12] LABS: ALB/GLOB RATIO 1.1 (1.0-2.1); BILIRUBIN,DIRECT 0.3 mg/dL (0.0-0.4); BILIRUBIN,TOTAL 0.3 mg/dL (0.2-1.3)
--- NOTE | 2016-07-18 16:07 | PCM.PYCHPN ---
Psychiatric Progress Note - Psychiatric Progress Note Patient seen today, length of contact: 16 min Patient Chief Complaint: No c/c. Seen for a follow up consult. Problems Identified/Issues Discussed: Pt. seen, chart reviewed, and discussed w/ staff. Pt. was mostly uncooperative except to ask what medications she was on. She nodded yes-no to questions and denied SI, AVH but wouldn't elaborate. Same with SEs of meds. She is alone and not improving fast enough which is likely why she is more jimenez today. Support given Medication Change: Yes (start lexapro for depression, increase abilify) Medical Record Reviewed: Yes Mental Status Examination - Cognitive Function Orientation: Person, Place, Situation, Time Memory: Intact Attention: Poor Concentration: Poor Association: WNL Fund of Knowledge: Poor - Mood Mood: Depressed - Affect Affect: Blunted, Depressed (Pt. uncooperative.) - Speech Speech: Soft - Formal Thought Process Formal Thought Process: No Impairment (slow TP) - Suicidal Ideation Suicidal Ideation: No - Homicidal Ideation Homicidal Ideation: No Goal/Treatment Plan - Goal/Treatment Plan Need for Continued Stay: Severe depression anxiety, Severe functional impairment , Other (medical ) Progress Toward Problem(s) and Goals/Treatment Plan: Abilify for mood stabilization: 10 mg/d Add lexapro for anxiety and depression refer to [facility] for outpt care as she does not want to go to [facility] psychoed
--- NOTE | 2016-07-18 20:45 | PN ---
DATE: 07/18/2016 The patient was seen and examined at bedside. She was crying, saying that she is not feeling well. Denies any new complaints. PHYSICAL EXAMINATION: GENERAL: A young, morbidly obese female sitting in bed in no acute distress. VITAL SIGNS: Blood pressure 108/75, pulse 88, respirations 20, temperature 98.6 degrees Fahrenheit, T-max 102, O2 sat 99% on 100% nonrebreather mask. HEENT: Pupils equal, round, reacting to light and accommodation. Extraocular muscles intact. No ic terus, no pallor. NECK: Supple. No JVD. LUNGS: Bilateral vesicular breath sounds. Bilateral rhonchi heard. CARDIOVASCULAR: S1, S2 present, regular. ABDOMEN: Soft, nontender. Bowel sounds present. No guarding, no rigidity, no rebound tenderness no kari. CENTRAL NERVOUS SYSTEM: Alert, awake, oriented x 3. No focal deficits noted. EXTREMITIES: No edema. Palpable peripheral pulses. MEDICATIONS: Include Tylenol as needed, DuoNeb, Abilify 10 mg p.o. q.p.m., azithromycin 500 mg daily , Maxipime 1 gram IV q. 8 hours, Lovenox 40 mg subQ daily, Lexapro 5 mg p.o. daily, Pepcid 20 mg p.o. daily, folic acid 1 mg p.o. daily, Tamiflu 75 mg p.o. b.i.d., Phenergan cough syrup, Bactrim 240 mg IV q. 8 hours. LABORATORY DATA: Sodium 138, potassium 3.7, chloride 101, bicarbonate 27, BUN 3, creatinine 0.5, glu cose 87, calcium 7.7, AST 55, ALT 47, alkaline phosphatase 34. LDH is 1129, total protein 6, albumin 3.1. Hepatitis B serology negative. HIV negative, blood cultures are negative so far. ASSESSMENT AND PLAN: A young female with history of schizoaffective disorder, history of asthma, adm itted for pneumonia and influenza B positive. Her chest CT consistent with patchy nodular airspace c onsolidation and associated with some ground glass opacities throughout all lobes with mid to lower l obe predominance, consistent with possible PCP pneumonia. We will continue with current antibiotics as per ID. We will check sputum for silver methenamine stain. Continue with nebulizer treatments. Psychiatric consult appreciated. Started on Lexapro and Abilify. Will continue with other current m edication. Aiden Warner MD cc: [id number] TT: 07/18/2016 20:45:01 Confirmation # [id number] Dictation # [id number] jn
[2016-07-19] MEDS: Albuterol-Ipratrop 3 mg / 0.5 (3 ml) UD INH SCH ×4 (01:08→21:04)
[2016-07-19] MEDS: Cefepime IV 1 gm in Dextrose 50 ML IVPB SCH ×3 (03:17→18:52)
[2016-07-19] MEDS: Sulfamethoxazole/Trimethoprim 240 MG in Dextrose 5% In Water 250 ML IVPB SCH ×3 (05:33→21:11)
[2016-07-19 06:19] LABS: EOS % 0.4 % (0.0-4.0); HEMATOCRIT 34.9 % (34.0-47.0); LYMPH # 0.5 K/uL (1.0-4.3); MONO # 0.1 K/uL (0.0-0.8)
[2016-07-19 06:29] LABS: CHLORIDE 98 mmol/L (98-107); POTASSIUM 4.1 mmol/L (3.6-5.2); SODIUM 135 mmol/L (132-148)
[2016-07-19 06:32] LABS: ALKALINE PHOSPHATASE 38 U/L (38-126); ALT/SGPT 46 U/L (9-52); AST/SGOT 46 U/L (14-36); BILIRUBIN,TOTAL 0.6 mg/dL (0.2-1.3); BLOOD UREA NITROGEN 5 mg/dL (7-17); CALCIUM 8.1 mg/dl (8.6-10.4); CARBON DIOXIDE 27 mmol/L (22-30); GFR AFRICAN-AMERICAN > 60; GLUCOSE,RANDOM 136 mg/dL (65-105); TOTAL PROTEIN 6.6 g/dL (6.3-8.3)
[2016-07-19 06:33] LABS: BASO % 0.3 % (0.0-2.0); LYMPH % 18.6 % (20.0-40.0); MEAN CELL VOLUME 81.4 fL (81.0-99.0); MEAN CORPUSCULAR HEMOGLOBIN 26.4 pg (27.0-31.0); MEAN CORPUSCULAR HGB CONC 32.4 g/dL (33.0-37.0); MEAN PLATELET VOLUME 8.3 fL (7.2-11.7); MONO % 2.6 % (0.0-10.0); NRBC % 0.1 % (0.0-2.0); RED CELL DISTRIBUTION WIDTH 13.7 % (11.5-14.5)
[2016-07-19] MEDS: Enoxaparin 40 mg Syringe SC SCH (09:16)
[2016-07-19] MEDS: Azithromycin 500 MG in Sodium Chloride 0.9% 250 ML IVPB SCH (09:17)
[2016-07-19] MEDS: Pantoprazole 40 mg EC Tab PO SCH (09:17)
--- NOTE | 2016-07-19 10:44 | CP.PCM.PN ---
Subjective - Date & Time of Evaluation Date of Evaluation: 07/19/16 Time of Evaluation: 10:30 - Subjective Subjective: Progress note dictated #[id number] Objective - Vital Signs/Intake and Output Vital Signs (last 24 hours): Temp Pulse Resp BP Pulse Ox 97.5 F L 77 20 112/74 99 07/19/16 08:46 07/19/16 08:46 07/19/16 08:46 07/19/16 08:46 07/19/16 08:46 Intake and Output: 07/19/16 07/19/16 06:59 18:59 Intake Total 310 Balance 310 - Medications Medications: Current Medications Acetaminophen (Tylenol 325mg Tab) 650 mg PO Q6 PRN PRN Reason: Fever >100.4 F Last Admin: 07/17/16 20:20 Dose: 650 mg Albuterol/Ipratropium (Duoneb 3 Mg/0.5 Mg (3 Ml) Ud) 3 ml INH RQ6 [facility] Last Admin: 07/19/16 08:26 Dose: 3 ml Aripiprazole (Abilify) 10 mg PO QPM [facility] Last Admin: 07/18/16 18:34 Dose: 10 mg Enoxaparin Sodium (Lovenox) 40 mg SC DAILY [facility] Last Admin: 07/19/16 09:16 Dose: 40 mg Escitalopram Oxalate (Lexapro) 5 mg PO DAILY [facility] Last Admin: 07/19/16 09:17 Dose: 5 mg Famotidine (Pepcid) 20 mg PO DAILY [facility] Last Admin: 07/19/16 09:17 Dose: 20 mg Folic Acid (Folic Acid) 1 mg PO DAILY [facility] Last Admin: 07/19/16 09:17 Dose: 1 mg Cefepime HCl (Maxipime Iv 1 Gm Premix) 50 mls @ 100 mls/hr IVPB Q8H [facility] Last Admin: 07/19/16 03:17 Dose: 100 mls/hr Azithromycin 500 mg/ Sodium (Chloride) 250 mls @ 250 mls/hr IVPB DAILY [facility] Last Admin: 07/19/16 09:17 Dose: 250 mls/hr Trimethoprim/Sulfamethoxazole (240 mg/ Dextrose) 250 mls @ 166.667 mls/hr IVPB Q8H [facility] Last Admin: 07/19/16 05:33 Dose: 166.667 mls/hr Ondansetron HCl (Zofran Inj) 8 mg IVP Q8 PRN PRN Reason: Nausea/Vomiting Last Admin: 07/19/16 06:53 Dose: 8 mg Oseltamivir Phosphate (Tamiflu Cap) 75 mg PO BID [facility] Stop: 07/21/16 12:16 Last Admin: 07/19/16 09:16 Dose: 75 mg Pantoprazole Sodium (Protonix Ec Tab) 40 mg PO DAILY [facility] Last Admin: 07/19/16 09:17 Dose: 40 mg Promethazine HCl (Phenergan Syrup) 6.25 mg PO Q6H PRN PRN Reason: Cough Last Admin: 07/17/16 13:37 Dose: 6.25 mg - Labs Labs: 07/19/16 06:11 07/19/16 06:11 PT 13.4 SECONDS (9.7-12.2) H 07/17/16 10:17 INR 1.2 07/17/16 10:17 APTT 32 SECONDS (21-34) 07/17/16 10:17
[2016-07-19] MEDS: MethylPREDNISolone 40 mg Vial IVP SCH ×2 (11:30→17:52)
--- NOTE | 2016-07-19 13:38 | CP.PCM.PN ---
Subjective - Date & Time of Evaluation Date of Evaluation: 07/19/16 Time of Evaluation: 13:38 Objective - Vital Signs/Intake and Output Vital Signs (last 24 hours): Temp Pulse Resp BP Pulse Ox 97.5 F L 77 20 112/74 99 07/19/16 08:46 07/19/16 08:46 07/19/16 08:46 07/19/16 08:46 07/19/16 08:46 Intake and Output: 07/19/16 07/19/16 06:59 18:59 Intake Total 310 Balance 310 - Medications Medications: Current Medications Acetaminophen (Tylenol 325mg Tab) 650 mg PO Q6 PRN PRN Reason: Fever >100.4 F Last Admin: 07/17/16 20:20 Dose: 650 mg Albuterol/Ipratropium (Duoneb 3 Mg/0.5 Mg (3 Ml) Ud) 3 ml INH RQ6 [facility] Last Admin: 07/19/16 08:26 Dose: 3 ml Aripiprazole (Abilify) 10 mg PO QPM [facility] Last Admin: 07/18/16 18:34 Dose: 10 mg Enoxaparin Sodium (Lovenox) 40 mg SC DAILY [facility] Last Admin: 07/19/16 09:16 Dose: 40 mg Escitalopram Oxalate (Lexapro) 5 mg PO DAILY [facility] Last Admin: 07/19/16 09:17 Dose: 5 mg Famotidine (Pepcid) 20 mg PO DAILY [facility] Last Admin: 07/19/16 09:17 Dose: 20 mg Folic Acid (Folic Acid) 1 mg PO DAILY [facility] Last Admin: 07/19/16 09:17 Dose: 1 mg Cefepime HCl (Maxipime Iv 1 Gm Premix) 50 mls @ 100 mls/hr IVPB Q8H [facility] Last Admin: 07/19/16 11:29 Dose: 100 mls/hr Azithromycin 500 mg/ Sodium (Chloride) 250 mls @ 250 mls/hr IVPB DAILY [facility] Last Admin: 07/19/16 09:17 Dose: 250 mls/hr Trimethoprim/Sulfamethoxazole (240 mg/ Dextrose) 250 mls @ 166.667 mls/hr IVPB Q8H [facility] Last Admin: 07/19/16 05:33 Dose: 166.667 mls/hr Methylprednisolone (Solu-Medrol) 40 mg IVP Q8H [facility] Last Admin: 07/19/16 11:30 Dose: 40 mg Nystatin (Nystatin Oral Susp) 5 ml PO QID [facility] Ondansetron HCl (Zofran Inj) 8 mg IVP Q8 PRN PRN Reason: Nausea/Vomiting Last Admin: 07/19/16 06:53 Dose: 8 mg Oseltamivir Phosphate (Tamiflu Cap) 75 mg PO BID [facility] Stop: 07/21/16 12:16 Last Admin: 07/19/16 09:16 Dose: 75 mg Pantoprazole Sodium (Protonix Ec Tab) 40 mg PO DAILY [facility] Last Admin: 07/19/16 09:17 Dose: 40 mg Promethazine HCl (Phenergan Syrup) 6.25 mg PO Q6H PRN PRN Reason: Cough Last Admin: 07/17/16 13:37 Dose: 6.25 mg - Labs Labs: 07/19/16 06:11 07/19/16 06:11 PT 13.4 SECONDS (9.7-12.2) H 07/17/16 10:17 INR 1.2 07/17/16 10:17 APTT 32 SECONDS (21-34) 07/17/16 10:17 Assessment and Plan (1) Pneumonia Status: Acute (2) Fever Status: Acute (3) Bronchial asthma Status: Acute (4) Schizoaffective disorder Status: Acute
--- NOTE | 2016-07-19 13:45 | CP.PCM.PN ---
Subjective - Date & Time of Evaluation Date of Evaluation: 07/19/16 Time of Evaluation: 13:39 - Subjective Subjective: Patient was seen and examined at bedside, no acute distress, no acute events overnight. The patient was off non-rebreather and on nasal cannula, the patient was cooperative on questioning and on exam. The patients reports to continued shortness of breath and abdominal discomfort. patient also reported nausea, vomiting, and decreased appetite. Patient currently denies chest pain, palpitations, edema, headache, cough at this time. Objective - Vital Signs/Intake and Output Vital Signs (last 24 hours): Temp Pulse Resp BP Pulse Ox 97.5 F L 77 20 112/74 99 07/19/16 08:46 07/19/16 08:46 07/19/16 08:46 07/19/16 08:46 07/19/16 08:46 Intake and Output: 07/19/16 07/19/16 06:59 18:59 Intake Total 310 Balance 310 - Medications Medications: Current Medications Acetaminophen (Tylenol 325mg Tab) 650 mg PO Q6 PRN PRN Reason: Fever >100.4 F Last Admin: 07/17/16 20:20 Dose: 650 mg Albuterol/Ipratropium (Duoneb 3 Mg/0.5 Mg (3 Ml) Ud) 3 ml INH RQ6 [facility] Last Admin: 07/19/16 08:26 Dose: 3 ml Aripiprazole (Abilify) 10 mg PO QPM [facility] Last Admin: 07/18/16 18:34 Dose: 10 mg Enoxaparin Sodium (Lovenox) 40 mg SC DAILY [facility] Last Admin: 07/19/16 09:16 Dose: 40 mg Escitalopram Oxalate (Lexapro) 5 mg PO DAILY [facility] Last Admin: 07/19/16 09:17 Dose: 5 mg Famotidine (Pepcid) 20 mg PO DAILY [facility] Last Admin: 07/19/16 09:17 Dose: 20 mg Folic Acid (Folic Acid) 1 mg PO DAILY [facility] Last Admin: 07/19/16 09:17 Dose: 1 mg Cefepime HCl (Maxipime Iv 1 Gm Premix) 50 mls @ 100 mls/hr IVPB Q8H [facility] Last Admin: 07/19/16 11:29 Dose: 100 mls/hr Azithromycin 500 mg/ Sodium (Chloride) 250 mls @ 250 mls/hr IVPB DAILY [facility] Last Admin: 07/19/16 09:17 Dose: 250 mls/hr Trimethoprim/Sulfamethoxazole (240 mg/ Dextrose) 250 mls @ 166.667 mls/hr IVPB Q8H [facility] Last Admin: 07/19/16 05:33 Dose: 166.667 mls/hr Methylprednisolone (Solu-Medrol) 40 mg IVP Q8H [facility] Last Admin: 07/19/16 11:30 Dose: 40 mg Nystatin (Nystatin Oral Susp) 5 ml PO QID [facility] Ondansetron HCl (Zofran Inj) 8 mg IVP Q8 PRN PRN Reason: Nausea/Vomiting Last Admin: 07/19/16 06:53 Dose: 8 mg Oseltamivir Phosphate (Tamiflu Cap) 75 mg PO BID [facility] Stop: 07/21/16 12:16 Last Admin: 07/19/16 09:16 Dose: 75 mg Pantoprazole Sodium (Protonix Ec Tab) 40 mg PO DAILY [facility] Last Admin: 07/19/16 09:17 Dose: 40 mg Promethazine HCl (Phenergan Syrup) 6.25 mg PO Q6H PRN PRN Reason: Cough Last Admin: 07/17/16 13:37 Dose: 6.25 mg - Labs Labs: 07/19/16 06:11 07/19/16 06:11 PT 13.4 SECONDS (9.7-12.2) H 07/17/16 10:17 INR 1.2 07/17/16 10:17 APTT 32 SECONDS (21-34) 07/17/16 10:17 - Constitutional Appears: Well, Non-toxic, No Acute Distress - Head Exam Head Exam: ATRAUMATIC, NORMAL INSPECTION - Eye Exam Eye Exam: EOMI, Normal appearance - ENT Exam ENT Exam: Normal Exam - Respiratory Exam Respiratory Exam: Accessory Muscle Use, Decreased Breath Sounds, Rhonchi, Wheezes - Cardiovascular Exam Cardiovascular Exam: REGULAR RHYTHM, +S1, +S2 - Neurological Exam Neurological Exam: Alert, Awake, Oriented x3 - Skin Skin Exam: Dry, Normal Color, Warm Assessment and Plan - Assessment and Plan (Free Text) Plan: 1) Pneumonia -continue Abx -continue breathing treatments -continue steroids -F/u procalcitonin level
--- NOTE | 2016-07-19 14:14 | PCM.PYCHPN ---
Psychiatric Progress Note - Psychiatric Progress Note Patient seen today, length of contact: 16 min Patient Chief Complaint: Follow-up Problems Identified/Issues Discussed: Pt. seen, chart reviewed, and discussed w/ staff. Pt. is much more vocal today - she reports sleeping well and denies suicidal ideation. Pt. exhibits a lack of insight and refuses psychotropic medications. Denies SI, HI, AVH but looks irate and concrete. Only focused on getting non- pharm. help Psychoeducation was given, and Pt. was encouraged to continue outpatient therapy in [place]. Also referring to [facility] for outpatient care if she would prefer that instead. Support given Medication Change: No Medical Record Reviewed: Yes Mental Status Examination - Cognitive Function Orientation: Person, Place, Situation, Time Memory: Intact Attention: Poor Concentration: Poor Association: WNL Fund of Knowledge: Poor - Mood Mood: Depressed, Anxious - Affect Affect: Blunted, Depressed (Pt. uncooperative.) - Speech Speech: Appropriate - Formal Thought Process Formal Thought Process: No Impairment (slow TP) - Suicidal Ideation Suicidal Ideation: No - Homicidal Ideation Homicidal Ideation: No Goal/Treatment Plan - Goal/Treatment Plan Need for Continued Stay: Severe depression anxiety, Severe functional impairment , Other (medical ) Progress Toward Problem(s) and Goals/Treatment Plan: Abilify for mood stabilization: 10 mg/d. Will d/c if she declines again Lexapro for anxiety and depression Refer to [facility] for outpt care as she does not want to go to [place] Support and psychoed
[2016-07-19] MEDS: Nystatin 100,000 Units/ml Oral Susp 5 ml UD PO SCH ×3 (14:30→21:11)
--- NOTE | 2016-07-19 19:56 | CP.PCM.PN ---
Subjective - Date & Time of Evaluation Date of Evaluation: 07/19/16 Time of Evaluation: 19:55 - Subjective Subjective: AFEBRILE, NO ACUTE EVENTS OVERNIGHT. C/O SHORTNESS OF BREATH, +VE COUGH ABDOMINAL DISCOMFORT/AND NAUSEA. LABS LDH >1129 ESR 73, CRP>15 WBC 3.0 H 11.3 PLATELETS 195 CD4 HELPER CELLS 396/ LOW cd4 cd8 RATIOS 1.4 NORMAL bLOOD CULTURES 07/17/16 NEGATIVE TO DATE uRINE CULTURES 07/17/16 NEGATIVE Objective - Vital Signs/Intake and Output Vital Signs (last 24 hours): Temp Pulse Resp BP Pulse Ox 98 F 65 20 100/69 94 L 07/19/16 15:57 07/19/16 15:57 07/19/16 15:57 07/19/16 15:57 07/19/16 15:57 Intake and Output: 07/19/16 07/20/16 18:59 06:59 Intake Total 450 Balance 450 - Medications Medications: Current Medications Acetaminophen (Tylenol 325mg Tab) 650 mg PO Q6 PRN PRN Reason: Fever >100.4 F Last Admin: 07/17/16 20:20 Dose: 650 mg Albuterol/Ipratropium (Duoneb 3 Mg/0.5 Mg (3 Ml) Ud) 3 ml INH RQ6 [facility] Last Admin: 07/19/16 14:04 Dose: Not Given Aripiprazole (Abilify) 10 mg PO QPM [facility] Last Admin: 07/19/16 18:11 Dose: 10 mg Enoxaparin Sodium (Lovenox) 40 mg SC DAILY [facility] Last Admin: 07/19/16 09:16 Dose: 40 mg Escitalopram Oxalate (Lexapro) 5 mg PO DAILY [facility] Last Admin: 07/19/16 09:17 Dose: 5 mg Famotidine (Pepcid) 20 mg PO DAILY [facility] Last Admin: 07/19/16 09:17 Dose: 20 mg Folic Acid (Folic Acid) 1 mg PO DAILY [facility] Last Admin: 07/19/16 09:17 Dose: 1 mg Cefepime HCl (Maxipime Iv 1 Gm Premix) 50 mls @ 100 mls/hr IVPB Q8H [facility] Last Admin: 07/19/16 18:52 Dose: 100 mls/hr Azithromycin 500 mg/ Sodium (Chloride) 250 mls @ 250 mls/hr IVPB DAILY [facility] Last Admin: 07/19/16 09:17 Dose: 250 mls/hr Trimethoprim/Sulfamethoxazole (240 mg/ Dextrose) 250 mls @ 166.667 mls/hr IVPB Q8H [facility] Last Admin: 07/19/16 14:00 Dose: 166.667 mls/hr Methylprednisolone (Solu-Medrol) 40 mg IVP Q8H [facility] Last Admin: 07/19/16 17:52 Dose: 40 mg Nystatin (Nystatin Oral Susp) 5 ml PO QID [facility] Last Admin: 07/19/16 17:52 Dose: 5 ml Ondansetron HCl (Zofran Inj) 8 mg IVP Q8 PRN PRN Reason: Nausea/Vomiting Last Admin: 07/19/16 14:00 Dose: 8 mg Oseltamivir Phosphate (Tamiflu Cap) 75 mg PO BID [facility] Stop: 07/21/16 12:16 Last Admin: 07/19/16 17:52 Dose: 75 mg Pantoprazole Sodium (Protonix Ec Tab) 40 mg PO DAILY [facility] Last Admin: 07/19/16 09:17 Dose: 40 mg Promethazine HCl (Phenergan Syrup) 6.25 mg PO Q6H PRN PRN Reason: Cough Last Admin: 07/17/16 13:37 Dose: 6.25 mg - Labs Labs: 07/19/16 06:11 07/19/16 06:11 PT 13.4 SECONDS (9.7-12.2) H 07/17/16 10:17 INR 1.2 07/17/16 10:17 APTT 32 SECONDS (21-34) 07/17/16 10:17 - Constitutional Appears: No Acute Distress - Head Exam Head Exam: NORMAL INSPECTION - Eye Exam Eye Exam: EOMI, PERRL - ENT Exam ENT Exam: Mucous Membranes Moist (tongue coated ?thrush.) - Neck Exam Neck Exam: Full ROM, Normal Inspection. absent: Lymphadenopathy, Meningismus - Respiratory Exam Respiratory Exam: Prolonged Expiratory Phase, Rhonchi, Wheezes - GI/Abdominal Exam GI & Abdominal Exam: Soft, Normal Bowel Sounds. absent: Organomegaly - Extremities Exam Extremities Exam: Normal Capillary Refill. absent: Calf Tenderness, Pedal Edema - Neurological Exam Neurological Exam: Alert, Awake, CN II-XII Intact, Oriented x3, Reflexes Normal - Psychiatric Exam Psychiatric exam: Normal Mood - Skin Skin Exam: Normal Color, Warm Assessment and Plan (1) Pneumonia Assessment & Plan: sputum positive for yeast species ? oropharyngeal colonization. Start nystatin 5 mL by mouth swish and swallow 3 times a day. F/U QuantiFERON Gold TB test. Status: Acute (2) Fever Status: Acute (3) Bronchial asthma Status: Acute (4) Schizoaffective disorder Status: Acute - Assessment and Plan (Free Text) Plan: PLAN; CONTINUE iv mAXIPIME 1 G EVERY 8 HOURLY.07/17/16 CONTINUE BY MOUTH TAMIFLU 75 TWICE A DAY FOR 5 DAYS. 07/17/16 ON iv BACTRIM 240MG TMP/SMX iv PIGGYBACK EVERY 8 HOURLY.07/18/16. CONTINUE ZITHROMAX 500 MG ONCE A DAY DAILY FOR ATYPICAL PATHOGENS.07/17/16 iv SOLU-mEDROL 125 MG X1 DOSE NOW PATIENT STARTED ON SOLU-mEDROL 40 MG EVERY 8 HOURLY 07/19/16 SPUTUM FOR PCP.-P FOLINIC ACID 1 MG BY MOUTH DAILY PULMONARY TOILET AND RESPIRATORY TREATMENTS PER PULMONARY.
--- NOTE | 2016-07-19 21:31 | PN ---
DATE: 07/19/2016 The patient was seen and examined at bedside. The patient is feeling slightly better than yesterday today. Denies any shortness of breath. Cough is much better. Denies any headache, dizziness. REVIEW OF SYSTEMS: All other systems reviewed and were found to be negative. PHYSICAL EXAMINATION: GENERAL: Young obese female lying in bed in no acute distress. VITAL SIGNS: Blood pressure 100/69, pulse 65, respirations 20, temperature 98 degrees Fahrenheit, O2 sat is 94% on nasal cannula. HEENT: Pupils equal, round, reacting to light and accommodation. Extraocular muscles intact. No ic terus, no pallor. No oral thrush. NECK: Supple. No JVD. LUNGS: Bilateral vesicular breath sounds, bilateral rhonchi heard. HEART: S1, S2 present, regular. ABDOMEN: Soft, nontender. Bowel sounds present. No guarding, no rigidity, no rebound tenderness no kari. CENTRAL NERVOUS SYSTEM: Alert, awake, oriented x 3. No focal deficits noted. EXTREMITIES: No edema. MEDICATIONS: Include Tylenol as needed, DuoNeb, Abilify 10 mg q.p.m., azithromycin 500 mg daily, Max ipime 1 gram daily, Lovenox 40 mg subQ daily, Lexapro 5 mg daily, Pepcid 20 mg daily, folic acid 1 mg daily, methylprednisolone 40 mg IV push q. 8 hours, Nystatin oral suspension, Zofran 8 mg IV q. 8 ho urs p.r.n., Tamiflu 75 mg p.o. b.i.d., Protonix 40 mg p.o. daily, Phenergan cough syrup as needed, Ba ctrim 240 mg IV q. 8 hours. Blood cultures negative. Sputum shows a light growth of yeast species. ASSESSMENT AND PLAN: Young female with history of asthma, schizoaffective disorder, admitted for inf luenza B positive, bilateral infiltrates, PCP versus influenza pneumonia versus bacterial pneumonia a nd light growth of yeast in the sputum culture, questionable colonization. Continue with Maxipime, Z ithromax, Bactrim, and Tamiflu, as per ID. On IV Solu-Medrol and DuoNeb. Follow up with pending PCP results. Will follow up with ID and pulmonary. Aiden Warner MD cc: [id number] TT: 07/19/2016 21:30:21 Confirmation # [id number] Dictation # [id number] rn
[2016-07-20] MEDS: Albuterol-Ipratrop 3 mg / 0.5 (3 ml) UD INH SCH ×4 (02:00→20:26)
[2016-07-20] MEDS: MethylPREDNISolone 40 mg Vial IVP SCH ×3 (02:33→18:33)
[2016-07-20] MEDS: Cefepime IV 1 gm in Dextrose 50 ML IVPB SCH ×3 (02:33→18:33)
[2016-07-20] MEDS: Sulfamethoxazole/Trimethoprim 240 MG in Dextrose 5% In Water 250 ML IVPB SCH ×3 (05:40→22:00)
[2016-07-20] MEDS: Enoxaparin 40 mg Syringe SC SCH (09:15)
[2016-07-20] MEDS: Pantoprazole 40 mg EC Tab PO SCH (09:16)
[2016-07-20] MEDS: Nystatin 100,000 Units/ml Oral Susp 5 ml UD PO SCH ×4 (09:17→21:59)
[2016-07-20] MEDS: Azithromycin 500 MG in Sodium Chloride 0.9% 250 ML IVPB SCH (09:28)
--- NOTE | 2016-07-20 11:11 | CP.PCM.PN ---
Subjective - Date & Time of Evaluation Date of Evaluation: 07/20/16 Time of Evaluation: 09:30 - Subjective Subjective: Patient seen and examined at bedside, no acute distress, no acute events overnight. The patient is more awake and alert today, reports to feeling much better than yesterday but continues to complain of nausea and lack of appetite. The patient reports improvement in breathing function and does not report as much dyspnea as she did on arrival. The patient currently denies vomiting, fever , chills, headache, chest pain, palpitations, edema, pain on inspiration at this time. Objective - Vital Signs/Intake and Output Vital Signs (last 24 hours): Temp Pulse Resp BP Pulse Ox 98.0 F 89 18 140/58 L 100 07/20/16 09:08 07/20/16 09:08 07/20/16 09:08 07/20/16 09:08 07/20/16 09:08 Intake and Output: 07/20/16 07/20/16 06:59 18:59 Intake Total 500 Balance 500 - Medications Medications: Current Medications Acetaminophen (Tylenol 325mg Tab) 650 mg PO Q6 PRN PRN Reason: Fever >100.4 F Last Admin: 07/17/16 20:20 Dose: 650 mg Albuterol/Ipratropium (Duoneb 3 Mg/0.5 Mg (3 Ml) Ud) 3 ml INH RQ6 [facility] Last Admin: 07/20/16 07:37 Dose: 3 ml Aripiprazole (Abilify) 10 mg PO QPM [facility] Last Admin: 07/19/16 18:11 Dose: 10 mg Enoxaparin Sodium (Lovenox) 40 mg SC DAILY [facility] Last Admin: 07/20/16 09:15 Dose: 40 mg Escitalopram Oxalate (Lexapro) 5 mg PO DAILY [facility] Last Admin: 07/20/16 09:16 Dose: 5 mg Famotidine (Pepcid) 20 mg PO DAILY [facility] Last Admin: 07/20/16 09:16 Dose: 20 mg Folic Acid (Folic Acid) 1 mg PO DAILY [facility] Last Admin: 07/20/16 09:16 Dose: 1 mg Cefepime HCl (Maxipime Iv 1 Gm Premix) 50 mls @ 100 mls/hr IVPB Q8H [facility] Last Admin: 07/20/16 02:33 Dose: 100 mls/hr Azithromycin 500 mg/ Sodium (Chloride) 250 mls @ 250 mls/hr IVPB DAILY [facility] Last Admin: 07/20/16 09:28 Dose: 250 mls/hr Trimethoprim/Sulfamethoxazole (240 mg/ Dextrose) 250 mls @ 166.667 mls/hr IVPB Q8H [facility] Last Admin: 07/20/16 05:40 Dose: 166.667 mls/hr Methylprednisolone (Solu-Medrol) 40 mg IVP Q8H [facility] Last Admin: 07/20/16 02:33 Dose: 40 mg Nystatin (Nystatin Oral Susp) 5 ml PO QID [facility] Last Admin: 07/20/16 09:17 Dose: 5 ml Ondansetron HCl (Zofran Inj) 8 mg IVP Q8 PRN PRN Reason: Nausea/Vomiting Last Admin: 07/19/16 14:00 Dose: 8 mg Oseltamivir Phosphate (Tamiflu Cap) 75 mg PO BID [facility] Stop: 07/21/16 12:16 Last Admin: 07/20/16 09:16 Dose: 75 mg Pantoprazole Sodium (Protonix Ec Tab) 40 mg PO DAILY [facility] Last Admin: 07/20/16 09:16 Dose: 40 mg Promethazine HCl (Phenergan Syrup) 6.25 mg PO Q6H PRN PRN Reason: Cough Last Admin: 07/17/16 13:37 Dose: 6.25 mg - Labs Labs: 07/19/16 06:11 07/19/16 06:11 PT 13.4 SECONDS (9.7-12.2) H 07/17/16 10:17 INR 1.2 07/17/16 10:17 APTT 32 SECONDS (21-34) 07/17/16 10:17 - Constitutional Appears: Well, Non-toxic, No Acute Distress - Head Exam Head Exam: ATRAUMATIC, NORMAL INSPECTION - Eye Exam Eye Exam: EOMI, Normal appearance - ENT Exam ENT Exam: Normal Exam - Neck Exam Neck Exam: Normal Inspection - Respiratory Exam Respiratory Exam: Rhonchi, Wheezes - Cardiovascular Exam Cardiovascular Exam: REGULAR RHYTHM, +S1, +S2 - Neurological Exam Neurological Exam: Alert, Awake, Oriented x3 - Skin Skin Exam: Dry, Normal Color, Warm Assessment and Plan (1) Pneumonia Assessment & Plan: -Patient improving, repeat CXR for eval of pneumonia -continue with Abx -continue with nebulizer treatments -TB negative -Procalcitonin .7 -CD4 count low 396 Status: Acute
--- NOTE | 2016-07-20 13:39 | CP.PCM.PN ---
Subjective - Date & Time of Evaluation Date of Evaluation: 07/20/16 Time of Evaluation: 13:39 - Subjective Subjective: AFEBRILE, VSS. FEELING SLIGHTLY BETTER THAN YESTERDAY. DENIES CHEST PAIN, SHORTNESS OF BREATH, DENIES NAUSEA OR VOMITING. LABS REVIEWED wbc 3.0 CREAT 0.5/bun 5 LFTS IMPROVING TRANSAMINASES. QUANTIFERON GOLD TB TEST -VE hiv 1 rna QUANTITATIVE LEVELS _< 1.30 UNDETECTABLE. SPUTUM POSITIVE FOR YEAST-MOUTH MORENITA CD4 COUNTS 396 LOW CD4/CD8 RATIO IS NORMAL. BLOOD CULTURE -VE Objective - Vital Signs/Intake and Output Vital Signs (last 24 hours): Temp Pulse Resp BP Pulse Ox 98.0 F 89 18 140/58 L 100 07/20/16 09:08 07/20/16 09:08 07/20/16 09:08 07/20/16 09:08 07/20/16 09:08 Intake and Output: 07/20/16 07/20/16 06:59 18:59 Intake Total 500 Balance 500 - Medications Medications: Current Medications Acetaminophen (Tylenol 325mg Tab) 650 mg PO Q6 PRN PRN Reason: Fever >100.4 F Last Admin: 07/17/16 20:20 Dose: 650 mg Albuterol/Ipratropium (Duoneb 3 Mg/0.5 Mg (3 Ml) Ud) 3 ml INH RQ6 [facility] Last Admin: 07/20/16 13:22 Dose: Not Given Aripiprazole (Abilify) 10 mg PO QPM [facility] Last Admin: 07/19/16 18:11 Dose: 10 mg Enoxaparin Sodium (Lovenox) 40 mg SC DAILY [facility] Last Admin: 07/20/16 09:15 Dose: 40 mg Escitalopram Oxalate (Lexapro) 5 mg PO DAILY [facility] Last Admin: 07/20/16 09:16 Dose: 5 mg Famotidine (Pepcid) 20 mg PO DAILY [facility] Last Admin: 07/20/16 09:16 Dose: 20 mg Folic Acid (Folic Acid) 1 mg PO DAILY [facility] Last Admin: 07/20/16 09:16 Dose: 1 mg Cefepime HCl (Maxipime Iv 1 Gm Premix) 50 mls @ 100 mls/hr IVPB Q8H [facility] Last Admin: 07/20/16 11:08 Dose: 100 mls/hr Azithromycin 500 mg/ Sodium (Chloride) 250 mls @ 250 mls/hr IVPB DAILY [facility] Last Admin: 07/20/16 09:28 Dose: 250 mls/hr Trimethoprim/Sulfamethoxazole (240 mg/ Dextrose) 250 mls @ 166.667 mls/hr IVPB Q8H [facility] Last Admin: 07/20/16 13:30 Dose: 166.667 mls/hr Methylprednisolone (Solu-Medrol) 40 mg IVP Q8H [facility] Last Admin: 07/20/16 11:08 Dose: 40 mg Nystatin (Nystatin Oral Susp) 5 ml PO QID [facility] Last Admin: 07/20/16 13:31 Dose: Not Given Ondansetron HCl (Zofran Inj) 8 mg IVP Q8 PRN PRN Reason: Nausea/Vomiting Last Admin: 07/20/16 11:46 Dose: 8 mg Oseltamivir Phosphate (Tamiflu Cap) 75 mg PO BID [facility] Stop: 07/21/16 12:16 Last Admin: 07/20/16 09:16 Dose: 75 mg Pantoprazole Sodium (Protonix Ec Tab) 40 mg PO DAILY [facility] Last Admin: 07/20/16 09:16 Dose: 40 mg Promethazine HCl (Phenergan Syrup) 6.25 mg PO Q6H PRN PRN Reason: Cough Last Admin: 07/17/16 13:37 Dose: 6.25 mg - Labs Labs: 07/19/16 06:11 07/19/16 06:11 PT 13.4 SECONDS (9.7-12.2) H 07/17/16 10:17 INR 1.2 07/17/16 10:17 APTT 32 SECONDS (21-34) 07/17/16 10:17 - Constitutional Appears: No Acute Distress - Head Exam Head Exam: NORMAL INSPECTION - Eye Exam Eye Exam: EOMI, PERRL. absent: Scleral icterus - ENT Exam ENT Exam: Mucous Membranes Moist, Normal Oropharynx - Neck Exam Neck Exam: Normal Inspection - Respiratory Exam Respiratory Exam: Rhonchi, Wheezes (BILATERALLY.) - Cardiovascular Exam Cardiovascular Exam: REGULAR RHYTHM, +S1, +S2 - Extremities Exam Extremities Exam: Normal Capillary Refill. absent: Calf Tenderness, Pedal Edema - Neurological Exam Neurological Exam: Awake, CN II-XII Intact, Normal Gait, Oriented x3, Reflexes Normal - Psychiatric Exam Psychiatric exam: Normal Mood - Skin Skin Exam: Normal Color Assessment and Plan (1) Pneumonia Assessment & Plan: PATIENT WENT FOR CHEST X-RAY TODAY CHEST X-RAY REPORT 07/20/16 NOTED-RIGHT BASILAR OPACITY Status: Acute (2) Fever Status: Acute (3) Bronchial asthma Status: Acute (4) Schizoaffective disorder Status: Acute - Assessment and Plan (Free Text) Plan: WHEN PATIENT CLEARED BY PULMONARY CAN DC iv ANTIBIOTICS ON DISCHARGE cONTINUE BY MOUTH bACTRIM 1 DOUBLE STRENGTH TWICE A DAY X 14 DAYS. MAY tAPER STEROIDS PER PULMONARY. FOLLOW-UP AT THE CLINIC MONITOR cbc AND RENAL FUNCTIONS CLOSELY. FOR NOW CONTINUE iv mAXIPIME 1 G EVERY 8 HOURLY.07/17/16 CONTINUE BY MOUTH TAMIFLU 75 TWICE A DAY FOR 5 DAYS. 07/17/16 TILL 07/21/16 ON iv BACTRIM 240MG TMP/SMX iv PIGGYBACK EVERY 8 HOURLY.07/18/16. CONTINUE ZITHROMAX 500 MG ONCE A DAY DAILY FOR ATYPICAL PATHOGENS.07/17/16. mAY dc zITHROMAX IN A.M.07/21 iv SOLU-mEDROL 125 MG X1 DOSE NOW ON SOLU-mEDROL 40 MG EVERY 8 HOURLY 07/19/16 SPUTUM FOR PCP.-P FOLINIC ACID 1 MG BY MOUTH DAILY WHILE PATIENT ON bACTRIM. PULMONARY TOILET AND RESPIRATORY TREATMENTS PER PULMONARY.
--- NOTE | 2016-07-20 15:22 | CP.PCM.PN ---
Subjective - Date & Time of Evaluation Date of Evaluation: 07/20/16 Time of Evaluation: 15:00 - Subjective Subjective: Progress note dictated #[id number] Objective - Vital Signs/Intake and Output Vital Signs (last 24 hours): Temp Pulse Resp BP Pulse Ox 98.0 F 89 18 140/58 L 100 07/20/16 09:08 07/20/16 09:08 07/20/16 09:08 07/20/16 09:08 07/20/16 09:08 Intake and Output: 07/20/16 07/20/16 06:59 18:59 Intake Total 500 Balance 500 - Medications Medications: Current Medications Acetaminophen (Tylenol 325mg Tab) 650 mg PO Q6 PRN PRN Reason: Fever >100.4 F Last Admin: 07/17/16 20:20 Dose: 650 mg Albuterol/Ipratropium (Duoneb 3 Mg/0.5 Mg (3 Ml) Ud) 3 ml INH RQ6 [facility] Last Admin: 07/20/16 13:22 Dose: Not Given Aripiprazole (Abilify) 10 mg PO QPM [facility] Last Admin: 07/19/16 18:11 Dose: 10 mg Enoxaparin Sodium (Lovenox) 40 mg SC DAILY [facility] Last Admin: 07/20/16 09:15 Dose: 40 mg Escitalopram Oxalate (Lexapro) 5 mg PO DAILY [facility] Last Admin: 07/20/16 09:16 Dose: 5 mg Famotidine (Pepcid) 20 mg PO DAILY [facility] Last Admin: 07/20/16 09:16 Dose: 20 mg Folic Acid (Folic Acid) 1 mg PO DAILY [facility] Last Admin: 07/20/16 09:16 Dose: 1 mg Cefepime HCl (Maxipime Iv 1 Gm Premix) 50 mls @ 100 mls/hr IVPB Q8H [facility] Last Admin: 07/20/16 11:08 Dose: 100 mls/hr Azithromycin 500 mg/ Sodium (Chloride) 250 mls @ 250 mls/hr IVPB DAILY [facility] Last Admin: 07/20/16 09:28 Dose: 250 mls/hr Trimethoprim/Sulfamethoxazole (240 mg/ Dextrose) 250 mls @ 166.667 mls/hr IVPB Q8H [facility] Last Admin: 07/20/16 13:30 Dose: 166.667 mls/hr Methylprednisolone (Solu-Medrol) 40 mg IVP Q8H [facility] Last Admin: 07/20/16 11:08 Dose: 40 mg Nystatin (Nystatin Oral Susp) 5 ml PO QID [facility] Last Admin: 07/20/16 13:31 Dose: Not Given Ondansetron HCl (Zofran Inj) 8 mg IVP Q8 PRN PRN Reason: Nausea/Vomiting Last Admin: 07/20/16 11:46 Dose: 8 mg Oseltamivir Phosphate (Tamiflu Cap) 75 mg PO BID [facility] Stop: 07/21/16 12:16 Last Admin: 07/20/16 09:16 Dose: 75 mg Pantoprazole Sodium (Protonix Ec Tab) 40 mg PO DAILY [facility] Last Admin: 07/20/16 09:16 Dose: 40 mg Promethazine HCl (Phenergan Syrup) 6.25 mg PO Q6H PRN PRN Reason: Cough Last Admin: 07/17/16 13:37 Dose: 6.25 mg - Labs Labs: 07/19/16 06:11 07/19/16 06:11 PT 13.4 SECONDS (9.7-12.2) H 07/17/16 10:17 INR 1.2 07/17/16 10:17 APTT 32 SECONDS (21-34) 07/17/16 10:17
--- NOTE | 2016-07-20 16:22 | RAD ---
HISTORY: f/u pneumonia COMPARISON: 07/16/2016 TECHNIQUE: Chest PA and lateral FINDINGS: LUNGS: Hazy opacity in the right lung base. PLEURA: No significant pleural effusion identified. No pneumothorax apparent. CARDIOVASCULAR: Normal. OSSEOUS STRUCTURES: No significant abnormalities. VISUALIZED UPPER ABDOMEN: Normal. OTHER FINDINGS: None. IMPRESSION: Hazy opacity in the right lung base.
[2016-07-20 16:39] VITALS: RESP 20
--- NOTE | 2016-07-20 20:03 | PN ---
DATE: 07/20/2016 The patient was seen and examined at bedside. The patient is feeling much better, less cough, less shortness of breath, remains afebrile. PHYSICAL EXAMINATION: GENERAL: A young, morbidly obese female lying in bed in no acute distress. VITAL SIGNS: Blood pressure 101/68, pulse 82, respiration 20, temperature 98.3 degrees Fahrenheit, O2 sat 98% on nasal cannula. HEENT: Pupils equal, round, reacting to light and accommodation. Extraocular muscles intact. No icterus, no pallor. No oral thrush. No pharyngeal congestion. NECK: Supple. No JVD. LUNGS: Bilateral vesicular breath sounds, bilateral rhonchi heard. CARDIOVASCULAR: S1, S2 present, regular. ABDOMEN: Soft, nontender. Bowel sounds present. No guarding, no rigidity, no rebound tenderness noted. CENTRAL NERVOUS SYSTEM: Alert, awake, oriented x 3. No focal deficits noted. EXTREMITIES: No edema. Palpable peripheral pulses. MEDICATIONS: Include Tylenol, DuoNeb 3 mL, Abilify 10 mg at night, azithromycin 500 mg daily, Maxipime 1 gram IV q. 8 hours, Lovenox 40 mg subQ daily, Lexapro 5 mg p.o. daily, Pepcid 20 mg daily, folic acid 1 mg daily, Solu- Medrol 40 mg IV q. 8 hours, nystatin oral suspension, Zofran as needed, Tamiflu 75 mg p.o. b.i.d., Protonix 40 mg p.o. daily, Phenergan as needed, Bactrim 240 mg IV q. 8 hours. LABORATORY DATA: Chest x-ray: Hazy opacity in the right lung base. Beta hCG is less than 2.39. ASSESSMENT AND PLAN: Young female with bilateral infiltrates, influenzae pneumonia versus PCP pneumonia versus bacterial pneumonia, asthma. All the tests for immunocompromised state are negative. HIV negative. TB testing negative. LEONIE negative. On multiple antibiotics. We will continue with Bactrim, Maxipime, Zithromax and Tamiflu. We will continue with IV fluids. Continue with Solu-Medrol. Follow up with ID and pulmonary regarding the length of IV antibiotics. student financial services counselor for discharge planning. Padmavathi Jonnalagadda MD cc: [id number] TT: 07/20/2016 20:02:20 Confirmation # [id number] Dictation # [id number] hoda MAC
[2016-07-21] MEDS: Albuterol-Ipratrop 3 mg / 0.5 (3 ml) UD INH SCH ×4 (01:31→19:51)
[2016-07-21] MEDS: MethylPREDNISolone 40 mg Vial IVP SCH ×3 (02:54→18:38)
[2016-07-21] MEDS: Cefepime IV 1 gm in Dextrose 50 ML IVPB SCH ×3 (02:54→18:44)
[2016-07-21] MEDS: Sulfamethoxazole/Trimethoprim 240 MG in Dextrose 5% In Water 250 ML IVPB SCH ×4 (05:48→23:01)
[2016-07-21 08:06] LABS: CHLORIDE 100 mmol/L (98-107); POTASSIUM 4.2 mmol/L (3.6-5.2); SODIUM 133 mmol/L (132-148)
[2016-07-21 08:07] LABS: LYMPH # 1.3 K/uL (1.0-4.3); LYMPH % 13.9 % (20.0-40.0); MONO # 0.4 K/uL (0.0-0.8); RED CELL DISTRIBUTION WIDTH 14.1 % (11.5-14.5)
[2016-07-21 08:08] LABS: ALB/GLOB RATIO 1.1 (1.0-2.1); AST/SGOT 40 U/L (14-36); BILIRUBIN,DIRECT 0.3 mg/dL (0.0-0.4); BILIRUBIN,TOTAL 0.3 mg/dL (0.2-1.3); CARBON DIOXIDE 23 mmol/L (22-30); GFR AFRICAN-AMERICAN > 60; TOTAL PROTEIN 6.6 g/dL (6.3-8.3)
[2016-07-21 08:09] LABS: ALKALINE PHOSPHATASE 34 U/L (38-126); ALT/SGPT 49 U/L (9-52); BLOOD UREA NITROGEN 9 mg/dL (7-17); CALCIUM 8.1 mg/dl (8.6-10.4); GLUCOSE,RANDOM 156 mg/dL (65-105)
[2016-07-21 08:10] LABS: HEMATOCRIT 34.1 % (34.0-47.0); MEAN CELL VOLUME 81.1 fL (81.0-99.0); MEAN CORPUSCULAR HEMOGLOBIN 25.8 pg (27.0-31.0); MEAN CORPUSCULAR HGB CONC 31.9 g/dL (33.0-37.0); MEAN PLATELET VOLUME 8.7 fL (7.2-11.7); WHITE BLOOD COUNT 9.3 K/uL (4.8-10.8)
[2016-07-21 08:11] LABS: BASO % 0.3 % (0.0-2.0); MONO % 4.1 % (0.0-10.0); NRBC % 0.3 % (0.0-2.0)
[2016-07-21] MEDS: Pantoprazole 40 mg EC Tab PO SCH (11:07)
[2016-07-21] MEDS: Azithromycin 500 MG in Sodium Chloride 0.9% 250 ML IVPB SCH (11:08)
[2016-07-21] MEDS: Enoxaparin 40 mg Syringe SC SCH (11:08)
--- NOTE | 2016-07-21 11:09 | CP.PCM.PN ---
Subjective - Date & Time of Evaluation Date of Evaluation: 07/21/16 Time of Evaluation: 11:00 - Subjective Subjective: Progress note dictated #[id number] Objective - Vital Signs/Intake and Output Vital Signs (last 24 hours): Temp Pulse Resp BP Pulse Ox 98.2 F 67 20 119/81 97 07/21/16 09:15 07/21/16 09:15 07/21/16 09:15 07/21/16 09:15 07/21/16 09:15 Intake and Output: 07/21/16 07/21/16 06:59 18:59 Intake Total 450 Balance 450 - Medications Medications: Current Medications Acetaminophen (Tylenol 325mg Tab) 650 mg PO Q6 PRN PRN Reason: Fever >100.4 F Last Admin: 07/17/16 20:20 Dose: 650 mg Albuterol/Ipratropium (Duoneb 3 Mg/0.5 Mg (3 Ml) Ud) 3 ml INH RQ6 [facility] Last Admin: 07/21/16 07:46 Dose: Not Given Aripiprazole (Abilify) 10 mg PO QPM [facility] Last Admin: 07/20/16 18:33 Dose: 10 mg Enoxaparin Sodium (Lovenox) 40 mg SC DAILY [facility] Last Admin: 07/20/16 09:15 Dose: 40 mg Escitalopram Oxalate (Lexapro) 5 mg PO DAILY [facility] Last Admin: 07/20/16 09:16 Dose: 5 mg Famotidine (Pepcid) 20 mg PO DAILY [facility] Last Admin: 07/20/16 09:16 Dose: 20 mg Folic Acid (Folic Acid) 1 mg PO DAILY [facility] Last Admin: 07/20/16 09:16 Dose: 1 mg Cefepime HCl (Maxipime Iv 1 Gm Premix) 50 mls @ 100 mls/hr IVPB Q8H [facility] Last Admin: 07/21/16 02:54 Dose: 100 mls/hr Azithromycin 500 mg/ Sodium (Chloride) 250 mls @ 250 mls/hr IVPB DAILY [facility] Last Admin: 07/20/16 09:28 Dose: 250 mls/hr Trimethoprim/Sulfamethoxazole (240 mg/ Dextrose) 250 mls @ 166.667 mls/hr IVPB Q8H [facility] Last Admin: 07/21/16 05:48 Dose: 166.667 mls/hr Methylprednisolone (Solu-Medrol) 40 mg IVP Q8H [facility] Last Admin: 07/21/16 02:54 Dose: 40 mg Nystatin (Nystatin Oral Susp) 5 ml PO QID [facility] Last Admin: 07/20/16 21:59 Dose: 5 ml Ondansetron HCl (Zofran Inj) 8 mg IVP Q8 PRN PRN Reason: Nausea/Vomiting Last Admin: 07/20/16 11:46 Dose: 8 mg Oseltamivir Phosphate (Tamiflu Cap) 75 mg PO BID [facility] Stop: 07/21/16 12:16 Last Admin: 07/20/16 18:33 Dose: 75 mg Pantoprazole Sodium (Protonix Ec Tab) 40 mg PO DAILY [facility] Last Admin: 07/20/16 09:16 Dose: 40 mg Promethazine HCl (Phenergan Syrup) 6.25 mg PO Q6H PRN PRN Reason: Cough Last Admin: 07/17/16 13:37 Dose: 6.25 mg - Labs Labs: 07/21/16 07:44 07/21/16 07:44 PT 13.4 SECONDS (9.7-12.2) H 07/17/16 10:17 INR 1.2 07/17/16 10:17 APTT 32 SECONDS (21-34) 07/17/16 10:17
[2016-07-21] MEDS: Nystatin 100,000 Units/ml Oral Susp 5 ml UD PO SCH ×4 (11:10→21:31)
--- NOTE | 2016-07-21 13:11 | CP.PCM.PN ---
Subjective - Date & Time of Evaluation Date of Evaluation: 07/21/16 Time of Evaluation: 10:30 - Subjective Subjective: Pt seen and examined at bedside on NC 3L; confirmed that it was needed. Pt complained of chest congestion and productive cough with yellow and clear sputum 2x/hr. Pt denies chest pain and fevers or chills. Pt explained a prior visit to [place] for breathing difficulty where she was prescribed a medicated inhaler and she did not tolerate the treatment due to a bad taste. While she is concerned about needing an inhaler to breath due to environmental triggers she would like a breathing treatment at discharge that is non- medicated. Objective - Vital Signs/Intake and Output Vital Signs (last 24 hours): Temp Pulse Resp BP Pulse Ox 98.2 F 67 20 119/81 97 07/21/16 09:15 07/21/16 09:15 07/21/16 09:15 07/21/16 09:15 07/21/16 09:15 Intake and Output: 07/21/16 07/21/16 06:59 18:59 Intake Total 450 Balance 450 - Medications Medications: Current Medications Acetaminophen (Tylenol 325mg Tab) 650 mg PO Q6 PRN PRN Reason: Fever >100.4 F Last Admin: 07/17/16 20:20 Dose: 650 mg Albuterol/Ipratropium (Duoneb 3 Mg/0.5 Mg (3 Ml) Ud) 3 ml INH RQ6 [facility] Last Admin: 07/21/16 07:46 Dose: Not Given Aripiprazole (Abilify) 10 mg PO QPM [facility] Last Admin: 07/20/16 18:33 Dose: 10 mg Enoxaparin Sodium (Lovenox) 40 mg SC DAILY [facility] Last Admin: 07/21/16 11:08 Dose: 40 mg Escitalopram Oxalate (Lexapro) 5 mg PO DAILY [facility] Last Admin: 07/21/16 11:08 Dose: 5 mg Famotidine (Pepcid) 20 mg PO DAILY [facility] Last Admin: 07/21/16 11:07 Dose: 20 mg Folic Acid (Folic Acid) 1 mg PO DAILY [facility] Last Admin: 07/21/16 11:07 Dose: 1 mg Cefepime HCl (Maxipime Iv 1 Gm Premix) 50 mls @ 100 mls/hr IVPB Q8H [facility] Last Admin: 07/21/16 11:10 Dose: 100 mls/hr Azithromycin 500 mg/ Sodium (Chloride) 250 mls @ 250 mls/hr IVPB DAILY [facility] Last Admin: 07/21/16 11:08 Dose: 250 mls/hr Trimethoprim/Sulfamethoxazole (240 mg/ Dextrose) 250 mls @ 166.667 mls/hr IVPB Q8H [facility] Last Admin: 07/21/16 05:48 Dose: 166.667 mls/hr Methylprednisolone (Solu-Medrol) 40 mg IVP 12 [facility] Nystatin (Nystatin Oral Susp) 5 ml PO QID [facility] Last Admin: 07/21/16 11:10 Dose: 5 ml Ondansetron HCl (Zofran Inj) 8 mg IVP Q8 PRN PRN Reason: Nausea/Vomiting Last Admin: 07/20/16 11:46 Dose: 8 mg Pantoprazole Sodium (Protonix Ec Tab) 40 mg PO DAILY [facility] Last Admin: 07/21/16 11:07 Dose: 40 mg Promethazine HCl (Phenergan Syrup) 6.25 mg PO Q6H PRN PRN Reason: Cough Last Admin: 07/17/16 13:37 Dose: 6.25 mg - Labs Labs: 07/21/16 07:44 07/21/16 07:44 PT 13.4 SECONDS (9.7-12.2) H 07/17/16 10:17 INR 1.2 07/17/16 10:17 APTT 32 SECONDS (21-34) 07/17/16 10:17 - Constitutional Appears: Well, No Acute Distress - Head Exam Head Exam: ATRAUMATIC, NORMOCEPHALIC - Respiratory Exam Respiratory Exam: Rhonchi (R), NORMAL BREATHING PATTERN. absent: Clear to Ausculation Bilateral, Rales, Wheezes, Respiratory Distress - Cardiovascular Exam Cardiovascular Exam: +S1, +S2. absent: Murmur - Neurological Exam Neurological Exam: Alert, Awake, Oriented x3 - Psychiatric Exam Psychiatric exam: Normal Affect, Normal Mood - Skin Skin Exam: Dry, Intact, Normal Color, Warm Assessment and Plan (1) Pneumonia Assessment & Plan: Continue antibiotics and nebulizer treatments Blood and urine cultures negative MRSA negative TB testing was negative 07-18-16 CXR 07-20-16 hazy opacity R lung base Sputum culture positive for yeast Most recent pro-martinez 0.7 on 07-19-16 CD4 count 396 with negative HIV testing [place] continue to monitor productive cough, SOB, and fever Status: Acute
--- NOTE | 2016-07-21 15:50 | PN ---
DATE: 07/21/2016 The patient is seen and examined at bedside. The patient is more comfortable lying in bed. Denies a ny chest pain, shortness of breath or wheezing. Denies any stuffiness but complaining of cough with clear to yellowish sputum production. PHYSICAL EXAMINATION: GENERAL: Young morbidly obese female lying in bed in no acute distress. VITAL SIGNS: Blood pressure 119/81, pulse 67, respirations 20, temperature 98.2 degrees Fahrenheit, O2 sats 97% on room air. HEENT: Pupils equal, round, reacting to light and accommodation. Extraocular muscles intact. No ic terus, no pallor. No oral thrush. No pharyngeal congestion. NECK: Supple. No JVD. LUNGS: Bilateral vesicular breath sounds, bilateral rhonchi heard. CARDIOVASCULAR: S1, S2 present, regular. ABDOMEN: Soft, nontender. Bowel sounds present. No guarding, no rigidity, no rebound tenderness no kari. CENTRAL NERVOUS SYSTEM: Alert, awake, oriented x 3. No focal deficits noted. EXTREMITIES: No edema. Palpable peripheral pulses. MEDICATIONS: Include Tylenol, DuoNeb, Abilify, azithromycin 500 mg daily, Maxipime 1 gram q. 8 hours , Lovenox 40 mg daily, Lexapro 5 mg daily, Pepcid 20 mg daily, folic acid 1 mg daily, Solu-Medrol 40 mg IV q. 12 hours, nystatin 5 mL p.o. q.i.d., Zofran as needed, Protonix 40 mg daily, Phenergan as ne eded, Bactrim 240 mg IV q. 8 hours. LABORATORY DATA: WBC 9.3, hemoglobin 10.9, hematocrit 34.1, platelets 264. Sodium 133, potassium 4. 2, chloride 100, bicarbonate 23, BUN 9, creatinine 0.6, glucose 156, calcium 8.1. AST 40, ALT 49, al kaline phosphatase 34, LDH 813, total protein 6.6, albumin 3.5. Urine beta hCG negative. LEONIE negati ve. ASSESSMENT AND PLAN: Young female with asthma, bilateral infiltrates, influenza B positive, sputum c ulture positive for yeast, other blood cultures negative, possible colonization from the oral cavity. The patient is clinically improving on multiple antibiotics and steroids and DuoNeb. Will continue with current therapy. Will plan discharging the patient home when cleared by ID and pulmonary. Adair oliveira follow up with social work coordinator for discharge planning. Aiden Warner MD cc: [id number] TT: 07/21/2016 15:49:23 Confirmation # [id number] Dictation # [id number] mn
--- NOTE | 2016-07-21 20:20 | CP.PCM.PN ---
Subjective - Date & Time of Evaluation Date of Evaluation: 07/21/16 Time of Evaluation: 20:20 - Subjective Subjective: AFEBRILE, VSS. FEELING SLIGHTLY BETTER THAN YESTERDAY. DENIES CHEST PAIN, SHORTNESS OF BREATH, SITTING UP AND WALKING TO THE BATHROOM WITHOUT OXYGEN Objective - Vital Signs/Intake and Output Vital Signs (last 24 hours): Temp Pulse Resp BP Pulse Ox 97.6 F 67 20 107/71 96 07/21/16 16:00 07/21/16 16:00 07/21/16 16:00 07/21/16 16:00 07/21/16 16:00 - Medications Medications: Current Medications Acetaminophen (Tylenol 325mg Tab) 650 mg PO Q6 PRN PRN Reason: Fever >100.4 F Last Admin: 07/17/16 20:20 Dose: 650 mg Albuterol/Ipratropium (Duoneb 3 Mg/0.5 Mg (3 Ml) Ud) 3 ml INH RQ6 [facility] Last Admin: 07/21/16 19:51 Dose: Not Given Aripiprazole (Abilify) 10 mg PO QPM [facility] Last Admin: 07/21/16 18:39 Dose: 10 mg Enoxaparin Sodium (Lovenox) 40 mg SC DAILY [facility] Last Admin: 07/21/16 11:08 Dose: 40 mg Escitalopram Oxalate (Lexapro) 5 mg PO DAILY [facility] Last Admin: 07/21/16 11:08 Dose: 5 mg Famotidine (Pepcid) 20 mg PO DAILY [facility] Last Admin: 07/21/16 11:07 Dose: 20 mg Folic Acid (Folic Acid) 1 mg PO DAILY [facility] Last Admin: 07/21/16 11:07 Dose: 1 mg Cefepime HCl (Maxipime Iv 1 Gm Premix) 50 mls @ 100 mls/hr IVPB Q8H [facility] Last Admin: 07/21/16 18:44 Dose: 100 mls/hr Azithromycin 500 mg/ Sodium (Chloride) 250 mls @ 250 mls/hr IVPB DAILY [facility] Last Admin: 07/21/16 11:08 Dose: 250 mls/hr Trimethoprim/Sulfamethoxazole (240 mg/ Dextrose) 250 mls @ 166.667 mls/hr IVPB Q8H [facility] Last Admin: 07/21/16 13:00 Dose: 166.667 mls/hr Methylprednisolone (Solu-Medrol) 40 mg IVP 12 [facility] Last Admin: 07/21/16 18:38 Dose: 40 mg Nystatin (Nystatin Oral Susp) 5 ml PO QID [facility] Last Admin: 07/21/16 18:45 Dose: Not Given Ondansetron HCl (Zofran Inj) 8 mg IVP Q8 PRN PRN Reason: Nausea/Vomiting Last Admin: 07/20/16 11:46 Dose: 8 mg Pantoprazole Sodium (Protonix Ec Tab) 40 mg PO DAILY [facility] Last Admin: 07/21/16 11:07 Dose: 40 mg Promethazine HCl (Phenergan Syrup) 6.25 mg PO Q6H PRN PRN Reason: Cough Last Admin: 07/17/16 13:37 Dose: 6.25 mg - Labs Labs: 07/21/16 07:44 07/21/16 07:44 PT 13.4 SECONDS (9.7-12.2) H 07/17/16 10:17 INR 1.2 07/17/16 10:17 APTT 32 SECONDS (21-34) 07/17/16 10:17 - Constitutional Appears: No Acute Distress - Head Exam Head Exam: NORMAL INSPECTION - Eye Exam Eye Exam: EOMI, PERRL - ENT Exam ENT Exam: Mucous Membranes Moist Additional comments: TONGUE COATED. - Neck Exam Neck Exam: absent: Lymphadenopathy - Respiratory Exam Respiratory Exam: Prolonged Expiratory Phase, Rhonchi - Cardiovascular Exam Cardiovascular Exam: REGULAR RHYTHM, +S1, +S2 - GI/Abdominal Exam GI & Abdominal Exam: Soft, Normal Bowel Sounds - Extremities Exam Extremities Exam: absent: Calf Tenderness, Pedal Edema - Neurological Exam Neurological Exam: Alert, Awake, Oriented x3 - Psychiatric Exam Psychiatric exam: Normal Mood - Skin Skin Exam: Normal Color, Warm Assessment and Plan (1) Pneumonia Status: Acute (2) Fever Status: Acute (3) Bronchial asthma Status: Acute (4) Schizoaffective disorder Status: Acute - Assessment and Plan (Free Text) Plan: FOR NOW CONTINUE iv mAXIPIME 1 G EVERY 8 HOURLY.07/17/16 DC TAMIFLU 75 TWICE A DAY FOR 5 DAYS. 07/17/16 TILL 07/21/16 ON iv BACTRIM 240MG TMP/SMX iv PIGGYBACK EVERY 8 HOURLY.07/18/16. DC ZITHROMAX 500 MG ONCE A DAY DAILY. ON SOLU-mEDROL 40 MG EVERY 8 HOURLY 07/19/16. NYSTATIN 5ML S/S TID X 7DAYS WHEN PATIENT CLEARED BY PULMONARY CAN DC iv ANTIBIOTICS ON DISCHARGE CONTINUE BY MOUTH BACTRIM 1 DOUBLE STRENGTH TWICE A DAY X 14 DAYS. MAY tAPER STEROIDS PER PULMONARY. FOLLOW-UP AT THE CLINIC MONITOR cbc AND RENAL FUNCTIONS CLOSELY.
[2016-07-22] MEDS: Cefepime IV 1 gm in Dextrose 50 ML IVPB SCH ×2 (03:56→10:19)
[2016-07-22 04:29] VITALS: O2SAT 95
[2016-07-22] MEDS: Sulfamethoxazole/Trimethoprim 240 MG in Dextrose 5% In Water 250 ML IVPB SCH ×2 (05:17→13:16)
[2016-07-22] MEDS: Albuterol-Ipratrop 3 mg / 0.5 (3 ml) UD INH SCH ×2 (07:36→13:36)
[2016-07-22] MEDS: Enoxaparin 40 mg Syringe SC SCH (10:20)
[2016-07-22] MEDS: Nystatin 100,000 Units/ml Oral Susp 5 ml UD PO SCH ×2 (10:20→14:30)
--- NOTE | 2016-07-22 11:37 | CP.PCM.PN ---
Subjective - Date & Time of Evaluation Date of Evaluation: 07/22/16 Time of Evaluation: 10:10 - Subjective Subjective: Pt seen and examined at bedside sitting comfortably. Pt breathing RA and says she feels good today. Pt complains of a little non-productive cough that has improved. Pt denies SOB, sputum, congestion, chest pain, palpitations, fever or chills. Objective - Vital Signs/Intake and Output Vital Signs (last 24 hours): Temp Pulse Resp BP Pulse Ox 98.4 F 63 20 114/79 95 07/22/16 09:02 07/22/16 09:02 07/22/16 09:02 07/22/16 09:02 07/22/16 09:02 Intake and Output: 07/22/16 07/22/16 06:59 18:59 Output Total 1 Balance -1 - Medications Medications: Current Medications Acetaminophen (Tylenol 325mg Tab) 650 mg PO Q6 PRN PRN Reason: Fever >100.4 F Last Admin: 07/17/16 20:20 Dose: 650 mg Albuterol/Ipratropium (Duoneb 3 Mg/0.5 Mg (3 Ml) Ud) 3 ml INH RQ6 [facility] Last Admin: 07/22/16 07:36 Dose: Not Given Aripiprazole (Abilify) 10 mg PO QPM [facility] Last Admin: 07/21/16 18:39 Dose: 10 mg Enoxaparin Sodium (Lovenox) 40 mg SC DAILY [facility] Last Admin: 07/22/16 10:20 Dose: 40 mg Escitalopram Oxalate (Lexapro) 5 mg PO DAILY [facility] Last Admin: 07/22/16 10:19 Dose: 5 mg Famotidine (Pepcid) 20 mg PO DAILY [facility] Last Admin: 07/22/16 10:16 Dose: 20 mg Folic Acid (Folic Acid) 1 mg PO DAILY [facility] Last Admin: 07/22/16 10:19 Dose: 1 mg Cefepime HCl (Maxipime Iv 1 Gm Premix) 50 mls @ 100 mls/hr IVPB Q8H [facility] Last Admin: 07/22/16 10:19 Dose: 100 mls/hr Trimethoprim/Sulfamethoxazole (240 mg/ Dextrose) 250 mls @ 166.667 mls/hr IVPB Q8H [facility] Last Admin: 04/21/17 05:17 Dose: 166.667 mls/hr Methylprednisolone (Solu-Medrol) 40 mg IVP 12 [facility] Last Admin: 07/21/16 18:38 Dose: 40 mg Nystatin (Nystatin Oral Susp) 5 ml PO QID [facility] Last Admin: 07/22/16 10:20 Dose: 5 ml Ondansetron HCl (Zofran Inj) 8 mg IVP Q8 PRN PRN Reason: Nausea/Vomiting Last Admin: 07/20/16 11:46 Dose: 8 mg Promethazine HCl (Phenergan Syrup) 6.25 mg PO Q6H PRN PRN Reason: Cough Last Admin: 07/17/16 13:37 Dose: 6.25 mg - Labs Labs: 07/21/16 07:44 07/21/16 07:44 PT 13.4 SECONDS (9.7-12.2) H 07/17/16 10:17 INR 1.2 07/17/16 10:17 APTT 32 SECONDS (21-34) 07/17/16 10:17 - Constitutional Appears: Well, No Acute Distress - Head Exam Head Exam: ATRAUMATIC, NORMOCEPHALIC - Respiratory Exam Respiratory Exam: Clear to Ausculation Bilateral, Wheezes (occational LLL anterior and RLL posterior), NORMAL BREATHING PATTERN. absent: Prolonged Expiratory Phase, Rales, Rhonchi, Respiratory Distress - Cardiovascular Exam Cardiovascular Exam: +S1, +S2. absent: Murmur - Neurological Exam Neurological Exam: Alert, Awake, Oriented x3 - Psychiatric Exam Psychiatric exam: Normal Affect, Normal Mood - Skin Skin Exam: Dry, Intact, Normal Color, Warm Assessment and Plan (1) Pneumonia Assessment & Plan: Optimized from a pulmonary standpoint for discharge with antibiotics, steroid taper, and albuterol inhaler. Hospital course Blood and urine cultures negative MRSA negative TB testing was negative 07-18-16 CXR 07-20-16 hazy opacity R lung base Sputum culture positive for yeast Most recent pro-martinez 0.7 on 07-19-16 CD4 count 396 with negative HIV testing Status: Acute
[2016-07-22] MEDS: MethylPREDNISolone 40 mg Vial IVP SCH (13:16)
--- NOTE | 2016-07-22 14:45 | CP.PCM.PN ---
Subjective - Date & Time of Evaluation Date of Evaluation: 07/22/16 Time of Evaluation: 14:15 - Subjective Subjective: Discharge summary dictated #[id number] Objective - Vital Signs/Intake and Output Vital Signs (last 24 hours): Temp Pulse Resp BP Pulse Ox 98.4 F 63 20 114/79 95 07/22/16 09:02 07/22/16 09:02 07/22/16 09:02 07/22/16 09:02 07/22/16 09:02 Intake and Output: 07/22/16 07/22/16 06:59 18:59 Output Total 1 Balance -1 - Medications Medications: Current Medications Acetaminophen (Tylenol 325mg Tab) 650 mg PO Q6 PRN PRN Reason: Fever >100.4 F Last Admin: 07/17/16 20:20 Dose: 650 mg Albuterol/Ipratropium (Duoneb 3 Mg/0.5 Mg (3 Ml) Ud) 3 ml INH RQ6 [facility] Last Admin: 07/22/16 13:36 Dose: Not Given Aripiprazole (Abilify) 10 mg PO QPM [facility] Last Admin: 07/21/16 18:39 Dose: 10 mg Enoxaparin Sodium (Lovenox) 40 mg SC DAILY [facility] Last Admin: 07/22/16 10:20 Dose: 40 mg Escitalopram Oxalate (Lexapro) 5 mg PO DAILY [facility] Last Admin: 07/22/16 10:19 Dose: 5 mg Famotidine (Pepcid) 20 mg PO DAILY [facility] Last Admin: 07/22/16 10:16 Dose: 20 mg Folic Acid (Folic Acid) 1 mg PO DAILY [facility] Last Admin: 07/22/16 10:19 Dose: 1 mg Cefepime HCl (Maxipime Iv 1 Gm Premix) 50 mls @ 100 mls/hr IVPB Q8H [facility] Last Admin: 07/22/16 10:19 Dose: 100 mls/hr Trimethoprim/Sulfamethoxazole (240 mg/ Dextrose) 250 mls @ 166.667 mls/hr IVPB Q8H [facility] Last Admin: 07/22/16 13:16 Dose: 166.667 mls/hr Methylprednisolone (Solu-Medrol) 40 mg IVP 12 [facility] Last Admin: 07/22/16 13:16 Dose: 40 mg Nystatin (Nystatin Oral Susp) 5 ml PO QID [facility] Last Admin: 07/22/16 14:30 Dose: Not Given Ondansetron HCl (Zofran Inj) 8 mg IVP Q8 PRN PRN Reason: Nausea/Vomiting Last Admin: 07/20/16 11:46 Dose: 8 mg Promethazine HCl (Phenergan Syrup) 6.25 mg PO Q6H PRN PRN Reason: Cough Last Admin: 07/17/16 13:37 Dose: 6.25 mg - Labs Labs: 07/21/16 07:44 07/21/16 07:44 PT 13.4 SECONDS (9.7-12.2) H 07/17/16 10:17 INR 1.2 07/17/16 10:17 APTT 32 SECONDS (21-34) 07/17/16 10:17
[2016-07-22 16:20] VITALS: BP 108/72; PULSE 82; TEMP 98.3
--- NOTE | 2016-07-22 23:34 | DS ---
DISCHARGE DIAGNOSES: Asthma, pneumonia, schizoaffective disorder, influenza B positive. HISTORY OF PRESENT ILLNESS: The patient is a 26-year-old female with a past medical history of asthma, schizoaffective disorder, recently treated for bacterial vaginosis, seen in Emergency Department recently for the same. Was diagnosed with influenza B positive, given Tamiflu and discharged home. The patient returned to [facility] Emergency Department on 07/16 for worsening symptoms of cold, cough, fever and shortness of breath. In the Emergency Department the patient was found to be having a lung infiltrate and the patient was admitted for further management. Today, the patient is feeling much better. Denies any headache or dizziness. Denies any chest pain, shortness of breath or wheezing. Denies any nausea, vomiting, abdominal pain, diarrhea or constipation. Denies any urinary complaints. Denies any leg pains or leg cramps. Denies any other neurologic symptoms. All other systems reviewed and were found to be negative. PHYSICAL EXAMINATION: GENERAL: Young morbidly obese female lying in bed in no acute distress. VITAL SIGNS: Blood pressure 108/72, pulse 82, respiration 20, temperature 98.3 degrees Fahrenheit, O2 sats 95% on room air. HEENT: Pupils equal, round, reacting to light and accommodation. Extraocular muscles intact. No icterus, no pallor. No oral thrush. No pharyngeal congestion. NECK: Supple. No JVD, no thyromegaly. CHEST: Moving equally bilaterally on respiration. LUNGS: Bilateral vesicular breath sounds. No wheezing, no rhonchi. CARDIOVASCULAR: S1, S2 present, regular. ABDOMEN: Soft, nontender. Bowel sounds present. No guarding, no rigidity, no rebound tenderness noted. CENTRAL NERVOUS SYSTEM: Alert, awake, oriented x 3. No focal deficits noted. EXTREMITIES: No edema. Palpable peripheral pulses. LABORATORY DATA: Labs done from 07/21: WBC 9.3, hemoglobin 10.9, hematocrit 34.1, platelets 264. Sodium 133, potassium 4.2, chloride 100, bicarb 23, BUN 9 , creatinine 0.6, glucose 156, calcium 8.1, AST 40, ALT 49, alkaline phosphatase 34, C-reactive protein more than 15, total protein 6.6, albumin 3.4. Procalcitonin 0.07. Beta hCG less than 2.39. Urine beta hCG negative. LEONIE negative. Hepatitis negative. HIV negative. Legionella negative. Mycoplasma negative. Sputum culture: Yeast species, possible colonization. Blood cultures multiple times negative. Urine culture negative. HOSPITAL COURSE: The patient was admitted to the hospital for influenza and pneumonia versus bacterial pneumonia. The patient was started on Tamiflu and multiple antibiotics. The patient underwent CT scan, which showed ground glass opacities bilaterally, may be there was of PCP pneumonia for which the patient was started on Bactrim and IV Solu-Medrol with which her symptoms improved. The patient was evaluated by ID and pulmonary. The patient received Bactrim IV. ID cleared the patient for discharge, to be discharged on p.o. Bactrim for the remaining 14 days. Discussed with pulmonary, who cleared the patient for discharge on tapering doses of steroids and ProAir inhaler. As the patient is otherwise feeling better, the patient is being discharged. Requested social work faculty member to provide the patient with medications from the pharmacy as the patient is requesting and claiming that she is unable to pay for the copays for the prescriptions. Advised the patient to follow up with PMD as an outpatient. The patient was also evaluated by psychiatry for schizoaffective disorder. The patient was started on Lexapro and Abilify. Advised the patient to follow up with psychiatry as an outpatient. CONDITION UPON DISCHARGE: The patient is alert, awake, oriented x 3 and hemodynamically stable at the time of discharge. DISCHARGE INSTRUCTIONS: Follow up with PMD, follow up with ID, follow up with pulmonary, follow up with psychiatry as an outpatient. The patient needs to repeat CBC and Chem-7 next week. Advised the patient to follow up with PMD for repeat labs. DISCHARGE DIET: Regular. ACTIVITY: As tolerated. I advised the patient to return to the Emergency Department if any symptoms reoccur. Aiden Warner MD cc: [id number] TT: 07/22/2016 23:33:25 cindi MAC
== END 2016-07-22 17:00 | disposition home or self-care (01) | DRG 194 ==
LOC: C.ER 07:23 → C.9E 11:39 → C.6T 14:06
PROVIDERS: ADMIT Internal Medicine; ATTEND Internal Medicine
DX: J10.00 Influenza due to other identified influenza virus with unspecified type of pneumonia (principal); J45.901 Unspecified asthma with (acute) exacerbation; R45.851 Suicidal ideations; J98.11 Atelectasis; F25.0 Schizoaffective disorder, bipolar type; E87.6 Hypokalemia; F17.210 Nicotine dependence, cigarettes, uncomplicated; F41.9 Anxiety disorder, unspecified; J20.9 Acute bronchitis, unspecified; Z59.0 Homelessness